=== PATIENT | female | born 1955 | race Caucasian/White ===

== ENCOUNTER → 2017-07-20 | Outpatient (CLI) | payer OTHER ==
[2017-07-20 15:46] LABS: Bilirubin, Urine Neg (Neg); Blood, Urine 1+ (Neg); Glucose Qualitative, Urine Neg (Neg); Ketones, Urine Neg (Neg); Leukocyte Esterase, Urine 2+ (Neg); Nitrite, Urine Neg (Neg); Protein, Urine 1+ (Neg); Urobilinogen, Urine 3+ (Normal); pH, Urine 6.5 (5.0-8.0)
[2017-07-20 16:00] LABS: Appearance, Urine Clear (Clear); Color, Urine Yellow (P-Yellow)
[2017-07-20 16:01] LABS: Bacteria Mod /hpf; Mucus Light (0-Heavy); Red Blood Cells, Urine 0-2 /hpf (0-2); Squamous Epithelial Cells Mod /hpf (Few)
== END | disposition home or self-care (01) ==
LOC: LAB SHORT 15:32
PROVIDERS: Nurse Practitioner Family
DX: R35.0 Frequency of micturition (principal); R31.9 Hematuria, unspecified; L98.8 Other specified disorders of the skin and subcutaneous tissue
CPT/HCPCS: 81001; 87086

== ENCOUNTER → 2018-09-30 | Outpatient (CLI) | payer OTHER | END | disposition home or self-care (01) | LOC: LAB SHORT 07:12 → PLD 07:12 | DX: L30.8 Other specified dermatitis (principal); L90.5 Scar conditions and fibrosis of skin; L92.9 Granulomatous disorder of the skin and subcutaneous tissue, unspecified | CPT/HCPCS: 88305 ==

== ENCOUNTER → 2018-10-09 | Outpatient (CLI) | payer OTHER | END | disposition home or self-care (01) | LOC: LAB 19:02 → LAB SHORT 19:02 | DX: L02.93 Carbuncle, unspecified (principal) | CPT/HCPCS: 87070; 87077; 87147; 87186; 87205 ==

== ENCOUNTER 2018-10-31 08:49 | Day surgery (SDC) | payer OTHER ==
[~2018-10-31] VITALS: Ht 167.6 cm; Wt 75.5 kg
[~2018-10-31 08:49] MED LIST: NADO20 PO; PANT20 PO; Prinivil10 MG PO; Woman's Laxative5 MG PO
[2018-10-31] MEDS ORDERED: Milk Thistle175 M1 PO (09:31)
[2018-10-31] MEDS ORDERED: CYAN500 (09:31)
[2018-10-31] MEDS ORDERED: Zantac150 MG (09:31)
--- NOTE | 2018-10-31 09:42 | NUR ---
10/31/18 0942 Omer Holley 1ST AND 2ND IV ATTEMPTS IN [facility] UNSUCCESSFUL, ORSC.LAURA 3RD IV ATTEMPT IN [facility] UNSUCCESSFUL, ORSC.AXE
--- NOTE | 2018-10-31 11:33 | NUR ---
10/31/18 1133 Trudi Monet PROCEDURE ABORTED DUE TO INABILITY TO ADVANCE PAST THE SIGMOID.
== END 2018-10-31 12:07 | disposition home or self-care (01) ==
LOC: ORSCSDS 08:49
PROVIDERS: Student in an Organized Health Care Education/Training Program
PROC: 06L38CZ Occlusion of Esophageal Vein with Extraluminal Device, Via Natural or Artificial Opening Endoscopic (ICD-10-PCS; principal; 2018-10-31 10:15)
PROC: 0DJD8ZZ Inspection of Lower Intestinal Tract, Via Natural or Artificial Opening Endoscopic (ICD-10-PCS; principal; 2018-10-31 10:15)
DX: K74.60 Unspecified cirrhosis of liver (principal); I85.00 Esophageal varices without bleeding; K76.6 Portal hypertension; K21.9 Gastro-esophageal reflux disease without esophagitis; K31.89 Other diseases of stomach and duodenum; Z12.11 Encounter for screening for malignant neoplasm of colon; Z13.810 Encounter for screening for upper gastrointestinal disorder; K57.30 Diverticulosis of large intestine without perforation or abscess without bleeding; K66.0 Peritoneal adhesions (postprocedural) (postinfection); F17.210 Nicotine dependence, cigarettes, uncomplicated; Z79.899 Other long term (current) drug therapy
CPT/HCPCS: J2250; J2405; J2704; J7120

== ENCOUNTER 2019-01-23 10:26 | Day surgery (SDC) | payer OTHER ==
[~2019-01-23] VITALS: Ht 165.1 cm; Wt 79.5 kg
[~2019-01-23 10:26] MED LIST changes: +CYAN500; +Milk Thistle175 M1 PO; +Zantac150 MG
--- NOTE | 2019-01-23 11:13 | NUR ---
01/23/19 [address] JOE AND DR. TIM GILLIS TO PROCEDURE WITH NURSE SEDATION.
== END 2019-01-23 12:00 | disposition home or self-care (01) ==
LOC: ORSCSDS 10:26
PROVIDERS: Student in an Organized Health Care Education/Training Program
PROC: 0DJ08ZZ Inspection of Upper Intestinal Tract, Via Natural or Artificial Opening Endoscopic (ICD-10-PCS; principal; 2019-01-23 12:00)
DX: K74.60 Unspecified cirrhosis of liver (principal); I85.00 Esophageal varices without bleeding; K76.6 Portal hypertension; K31.89 Other diseases of stomach and duodenum; I10 Essential (primary) hypertension; F32.9 Major depressive disorder, single episode, unspecified; E55.9 Vitamin D deficiency, unspecified; B19.20 Unspecified viral hepatitis C without hepatic coma; Z87.891 Personal history of nicotine dependence; Z79.899 Other long term (current) drug therapy
CPT/HCPCS: J2704; J7120

== ENCOUNTER 2019-02-14 17:48 | Emergency (ER) | payer OTHER ==
[~2019-02-14] VITALS: Ht 165.1 cm; Wt 78.9 kg
[2019-02-14 18:28] LABS: Source, Urine Clean Catch
[2019-02-14 18:30] LABS: Bilirubin, Urine Neg (Neg); Blood, Urine 2+ (Neg); Glucose Qualitative, Urine Neg (Neg); Ketones, Urine Neg (Neg); Leukocyte Esterase, Urine 3+ (Neg); Nitrite, Urine Neg (Neg); Protein, Urine Neg (Neg); Urobilinogen, Urine 1+ (Normal); pH, Urine 6.5 (5.0-8.0)
[2019-02-14] MEDS ORDERED: Sudogest60 MG PO (18:40)
[2019-02-14] MEDS ORDERED: Keflex500 MG PO (18:40)
[2019-02-14 18:46] LABS: Appearance, Urine Hazy (Clear); Color, Urine Yellow (P-Yellow)
[2019-02-14 18:47] LABS: White Blood Cells, Urine TNTC /hpf (0-5)
[2019-02-14 18:55] LABS: Bacteria Few /hpf; Squamous Epithelial Cells Few /hpf (Few)
== END 2019-02-14 18:54 | disposition home or self-care (01) ==
LOC: ER 17:48
PROVIDERS: Physician Assistant
DX: N39.0 Urinary tract infection, site not specified (principal); R09.81 Nasal congestion; K21.9 Gastro-esophageal reflux disease without esophagitis; I10 Essential (primary) hypertension; F17.200 Nicotine dependence, unspecified, uncomplicated; Z79.899 Other long term (current) drug therapy
CPT/HCPCS: 81001; 87077; 87086; 87186; 99283

== ENCOUNTER 2019-12-05 00:17 | Day surgery (SDC) | payer OTHER ==
[~2019-12-05 00:17] MED LIST changes: +Keflex500 MG PO; +Sudogest60 MG PO
== END 2019-12-05 10:46 | disposition home or self-care (01) ==
LOC: ATC 00:17
DX: C22.0 Liver cell carcinoma (principal); F17.210 Nicotine dependence, cigarettes, uncomplicated; I10 Essential (primary) hypertension; Z79.899 Other long term (current) drug therapy
CPT/HCPCS: 99211

== ENCOUNTER → 2019-12-15 | Outpatient (CLI) | payer OTHER ==
[2019-12-15 10:48] LABS: BASOPHILS ABSOLUTE AUTO 0.07 K/mm3 (0.00-0.23); BASOPHILS PERCENT AUTO 2 % (0-2); EOSINOPHILS ABSOLUTE AUTO 0.25 K/mm3 (0.00-0.68); EOSINOPHILS PERCENT AUTO 6 % (0-6); Hematocrit 33.4 % (33.0-51.0); IMMATURE GRAN ABSOLUTE AUTO 0.01 K/mm3 (0.00-0.10); IMMATURE GRAN PERCENT AUTO 0 % (0-1); LYMPHOCYTES ABSOLUTE AUTO 0.78 K/mm3 (0.84-5.20); LYMPHOCYTES PERCENT AUTO 20 % (21-46); MONOCYTES ABSOLUTE AUTO 0.85 K/mm3 (0.16-1.47); MONOCYTES PERCENT AUTO 21 % (4-13); Mean Corpuscular HGB 32.4 pg (26.0-34.0); Mean Corpuscular HGB Conc 32.9 g/dL (31.5-36.5); Mean Corpuscular Volume 98 fL (80-100); Mean Platelet Volume 10.7 fL (9.1-12.4); NEUTROPHILS ABSOLUTE AUTO 2.04 K/mm3 (1.96-9.15); NEUTROPHILS PERCENT AUTO 51 % (41-73); Platelet Count 202 K/mm3 (150-400); RDW Coefficient Variation 13.7 % (11.7-14.2); RDW Standard Deviation 48.3 fL (35.1-46.3)
== END | disposition home or self-care (01) ==
LOC: LAB SHORT 09:30 → LAB 09:30
PROVIDERS: Internal Medicine Hematology & Oncology
DX: C22.0 Liver cell carcinoma (principal)
CPT/HCPCS: 82105; 85025

== ENCOUNTER 2020-01-02 00:16 | Day surgery (SDC) | payer OTHER | END 2020-01-02 09:50 | disposition home or self-care (01) | LOC: ATC 00:16 | DX: C22.0 Liver cell carcinoma (principal); E78.5 Hyperlipidemia, unspecified; I10 Essential (primary) hypertension; Z79.899 Other long term (current) drug therapy | CPT/HCPCS: 99211 ==

== ENCOUNTER → 2020-01-19 | Outpatient (CLI) | payer OTHER ==
[2020-01-19 20:18] LABS: Alanine Aminotransfer (ALT/SGP 96 U/L (12-78); Albumin, Blood 2.9 g/dL (3.4-5.0); Albumin/Globulin Ratio 0.7 (0.8-1.8); Alk Phos 129 U/L (50-136); Anion Gap 4 mmol/L (6-16); Aspartate Aminotrans (AST/SGOT 75 U/L (12-37); Bilirubin, Total 0.4 mg/dL (0.1-1.0); Blood Urea Nitrogen 14 mg/dL (8-24); Bun/Creatinine Ratio 24.7 (12.0-20.0); CO2, Blood 29 mmol/L (21-32); Calcium, Blood 8.6 mg/dL (8.5-10.1); Chloride, Blood 106 mmol/L (98-108); Creatinine, Blood 0.57 mg/dL (0.40-1.00); Globulin, Blood 4.3 g/dL (2.2-4.0); Glomerular Filtration Rate >60 (60-); Glucose, Blood 113 mg/dL (70-99); Potassium, Blood 4.2 mmol/L (3.5-5.5); Sodium, Blood 139 mmol/L (136-145); Total Protein, Blood 7.2 g/dL (6.4-8.2)
== END | disposition home or self-care (01) ==
LOC: LAB 17:54 → LAB SHORT 17:54
PROVIDERS: Nurse Practitioner Family
DX: C22.0 Liver cell carcinoma (principal)
CPT/HCPCS: 80053

== ENCOUNTER 2020-01-26 00:14 | Day surgery (SDC) | payer OTHER | END 2020-01-26 11:14 | disposition home or self-care (01) | LOC: ATC 00:14 | DX: C22.0 Liver cell carcinoma (principal); F17.210 Nicotine dependence, cigarettes, uncomplicated; I10 Essential (primary) hypertension; E78.5 Hyperlipidemia, unspecified; Z79.899 Other long term (current) drug therapy; B19.20 Unspecified viral hepatitis C without hepatic coma; K74.60 Unspecified cirrhosis of liver; Z90.49 Acquired absence of other specified parts of digestive tract | CPT/HCPCS: 99211 ==

== ENCOUNTER 2020-02-02 10:47 | Day surgery (SDC) | payer OTHER | END 2020-02-02 11:11 | disposition home or self-care (01) | LOC: ATC 10:47 | DX: C22.0 Liver cell carcinoma (principal); F17.210 Nicotine dependence, cigarettes, uncomplicated; E78.5 Hyperlipidemia, unspecified; I10 Essential (primary) hypertension; B19.20 Unspecified viral hepatitis C without hepatic coma; K74.60 Unspecified cirrhosis of liver; K52.1 Toxic gastroenteritis and colitis; T45.1X5A Adverse effect of antineoplastic and immunosuppressive drugs, initial encounter; Z79.899 Other long term (current) drug therapy; Z90.49 Acquired absence of other specified parts of digestive tract | CPT/HCPCS: 99211 ==

== ENCOUNTER 2020-02-09 16:22 | Emergency (ER) | payer OTHER ==
[~2020-02-09] VITALS: Ht 165.1 cm; Wt 72.6 kg
[2020-02-09 16:45] LABS: BASOPHILS ABSOLUTE AUTO 0.05 K/mm3 (0.00-0.23); BASOPHILS PERCENT AUTO 1 % (0-2); EOSINOPHILS ABSOLUTE AUTO 0.19 K/mm3 (0.00-0.68); EOSINOPHILS PERCENT AUTO 3 % (0-6); Hematocrit 33.8 % (33.0-51.0); Hemoglobin 10.8 g/dL (11.5-16.0); IMMATURE GRAN ABSOLUTE AUTO 0.02 K/mm3 (0.00-0.10); IMMATURE GRAN PERCENT AUTO 0 % (0-1); LYMPHOCYTES ABSOLUTE AUTO 1.09 K/mm3 (0.84-5.20); LYMPHOCYTES PERCENT AUTO 19 % (21-46); MONOCYTES ABSOLUTE AUTO 1.06 K/mm3 (0.16-1.47); MONOCYTES PERCENT AUTO 18 % (4-13); Mean Corpuscular HGB 31.2 pg (26.0-34.0); Mean Corpuscular Volume 98 fL (80-100); Mean Platelet Volume 10.4 fL (9.1-12.4); NEUTROPHILS ABSOLUTE AUTO 3.35 K/mm3 (1.96-9.15); NEUTROPHILS PERCENT AUTO 58 % (41-73); Platelet Count 85 K/mm3 (150-400); RDW Coefficient Variation 15.6 % (11.7-14.2); RDW Standard Deviation 54.3 fL (35.1-46.3); Red Blood Cell Count 3.46 M/mm3 (3.80-5.20); White Blood Cell Count 5.76 K/mm3 (4.00-11.30)
[2020-02-09 16:58] LABS: International Normalized Ratio 1.18; Prothrombin Time Results 12.5 Sec (9.7-11.5)
[2020-02-09 17:01] LABS: Alanine Aminotransfer (ALT/SGP 94 U/L (12-78); Albumin, Blood 2.6 g/dL (3.4-5.0); Albumin/Globulin Ratio 0.6 (0.8-1.8); Alk Phos 128 U/L (50-136); Anion Gap 4 mmol/L (6-16); Aspartate Aminotrans (AST/SGOT 95 U/L (12-37); Bilirubin, Total 0.5 mg/dL (0.1-1.0); Blood Urea Nitrogen 15 mg/dL (8-24); Bun/Creatinine Ratio 28.4 (12.0-20.0); CO2, Blood 29 mmol/L (21-32); Calcium, Blood 8.6 mg/dL (8.5-10.1); Chloride, Blood 108 mmol/L (98-108); Creatinine, Blood 0.53 mg/dL (0.40-1.00); Globulin, Blood 4.4 g/dL (2.2-4.0); Glomerular Filtration Rate >60 (60-); Glucose, Blood 99 mg/dL (70-99); Potassium, Blood 3.5 mmol/L (3.5-5.5); Sodium, Blood 141 mmol/L (136-145)
[2020-02-09 18:48] LABS: Source, Urine Catheter
[2020-02-09 19:04] LABS: Appearance, Urine Clear (Clear); Bilirubin, Urine Neg (Neg); Blood, Urine 1+ (Neg); Color, Urine Yellow (P-Yellow); Glucose Qualitative, Urine Neg (Neg); Ketones, Urine Neg (Neg); Leukocyte Esterase, Urine 2+ (Neg); Nitrite, Urine Neg (Neg); Protein, Urine Neg (Neg); Urobilinogen, Urine 1+ (Normal)
[2020-02-09 19:29] LABS: Bacteria Mod /hpf; Red Blood Cells, Urine 0-2 /hpf (0-2); Squamous Epithelial Cells Few /hpf (Few)
[2020-02-09] MEDS ORDERED: CEPH500 PO (19:36)
== END 2020-02-09 19:48 | disposition home or self-care (01) ==
LOC: ER 16:22
PROVIDERS: Emergency Medicine; Physician Assistant
DX: N39.0 Urinary tract infection, site not specified (principal); C22.8 Malignant neoplasm of liver, primary, unspecified as to type; B19.20 Unspecified viral hepatitis C without hepatic coma; K21.9 Gastro-esophageal reflux disease without esophagitis; I10 Essential (primary) hypertension; F17.200 Nicotine dependence, unspecified, uncomplicated; Z92.21 Personal history of antineoplastic chemotherapy; Z79.899 Other long term (current) drug therapy
CPT/HCPCS: 76705; 80053; 81001; 85025; 85610; 87086; 99284-25; A9270-GY

== ENCOUNTER → 2020-02-16 | Outpatient (CLI) | payer OTHER ==
[~2020-02-16] MED LIST changes: +CEPH500 PO
[2020-02-16 20:06] LABS: Albumin, Blood 2.7 g/dL (3.4-5.0); Albumin/Globulin Ratio 0.6 (0.8-1.8); Alk Phos 137 U/L (50-136); Anion Gap 7 mmol/L (6-16); Aspartate Aminotrans (AST/SGOT 138 U/L (12-37); Bilirubin, Total 0.7 mg/dL (0.1-1.0); Blood Urea Nitrogen 12 mg/dL (8-24); Bun/Creatinine Ratio 21.1 (12.0-20.0); CO2, Blood 27 mmol/L (21-32); Chloride, Blood 105 mmol/L (98-108); Creatinine, Blood 0.57 mg/dL (0.40-1.00); Globulin, Blood 4.5 g/dL (2.2-4.0); Glomerular Filtration Rate >60 (60-); Glucose, Blood 136 mg/dL (70-99); Potassium, Blood 4.2 mmol/L (3.5-5.5); Sodium, Blood 139 mmol/L (136-145); Total Protein, Blood 7.2 g/dL (6.4-8.2)
[2020-02-16 20:16] LABS: Alanine Aminotransfer (ALT/SGP 101 U/L (12-78)
== END | disposition home or self-care (01) ==
LOC: LAB 17:36 → LAB SHORT 17:36
PROVIDERS: Internal Medicine Hematology & Oncology
DX: C22.0 Liver cell carcinoma (principal)
CPT/HCPCS: 80053; 84100

== ENCOUNTER 2020-02-25 00:12 | Day surgery (SDC) | payer OTHER ==
[2020-02-25 09:26] LABS: BASOPHILS ABSOLUTE AUTO 0.04 K/mm3 (0.00-0.23); BASOPHILS PERCENT AUTO 1 % (0-2); EOSINOPHILS ABSOLUTE AUTO 0.08 K/mm3 (0.00-0.68); EOSINOPHILS PERCENT AUTO 3 % (0-6); Hematocrit 33.5 % (33.0-51.0); IMMATURE GRAN ABSOLUTE AUTO 0.05 K/mm3 (0.00-0.10); IMMATURE GRAN PERCENT AUTO 2 % (0-1); LYMPHOCYTES ABSOLUTE AUTO 0.91 K/mm3 (0.84-5.20); LYMPHOCYTES PERCENT AUTO 33 % (21-46); MONOCYTES ABSOLUTE AUTO 1.16 K/mm3 (0.16-1.47); MONOCYTES PERCENT AUTO 41 % (4-13); Mean Corpuscular HGB 31.9 pg (26.0-34.0); Mean Corpuscular HGB Conc 32.8 g/dL (31.5-36.5); Mean Corpuscular Volume 97 fL (80-100); Mean Platelet Volume 10.1 fL (9.1-12.4); NEUTROPHILS ABSOLUTE AUTO 0.56 K/mm3 (1.96-9.15); NEUTROPHILS PERCENT AUTO 20 % (41-73); Platelet Count 125 K/mm3 (150-400); RDW Coefficient Variation 15.5 % (11.7-14.2); RDW Standard Deviation 54.2 fL (35.1-46.3); Red Blood Cell Count 3.45 M/mm3 (3.80-5.20)
[2020-02-25 09:44] LABS: Alanine Aminotransfer (ALT/SGP 118 U/L (12-78); Albumin, Blood 2.9 g/dL (3.4-5.0); Albumin/Globulin Ratio 0.6 (0.8-1.8); Alk Phos 130 U/L (50-136); Anion Gap 5 mmol/L (6-16); Aspartate Aminotrans (AST/SGOT 165 U/L (12-37); Bilirubin, Total 0.7 mg/dL (0.1-1.0); Blood Urea Nitrogen 15 mg/dL (8-24); Bun/Creatinine Ratio 26.8 (12.0-20.0); CO2, Blood 29 mmol/L (21-32); Calcium, Blood 8.6 mg/dL (8.5-10.1); Chloride, Blood 103 mmol/L (98-108); Creatinine, Blood 0.56 mg/dL (0.40-1.00); Glomerular Filtration Rate >60 (60-); Glucose, Blood 91 mg/dL (70-99); Potassium, Blood 4.4 mmol/L (3.5-5.5); Sodium, Blood 137 mmol/L (136-145); Total Protein, Blood 7.9 g/dL (6.4-8.2)
== END 2020-02-25 09:50 | disposition home or self-care (01) ==
LOC: ATC 00:12
PROVIDERS: Internal Medicine Hematology & Oncology
DX: C22.0 Liver cell carcinoma (principal); F17.210 Nicotine dependence, cigarettes, uncomplicated; E78.5 Hyperlipidemia, unspecified; I10 Essential (primary) hypertension; Z79.899 Other long term (current) drug therapy; Z98.890 Other specified postprocedural states; K52.1 Toxic gastroenteritis and colitis; T45.1X5A Adverse effect of antineoplastic and immunosuppressive drugs, initial encounter; B19.20 Unspecified viral hepatitis C without hepatic coma
CPT/HCPCS: 36592; 80053; 85025

== ENCOUNTER → 2020-03-09 | Outpatient (CLI) | payer OTHER ==
[~2020-03-09] MED LIST changes: +AMLO10 PO; +FAMO40 PO; +FURO40 PO; +POTCHL20ER PO
[2020-03-09 10:24] LABS: Alanine Aminotransfer (ALT/SGP 89 U/L (12-78); Albumin, Blood 2.5 g/dL (3.4-5.0); Albumin/Globulin Ratio 0.5 (0.8-1.8); Alk Phos 120 U/L (50-136); Anion Gap 4 mmol/L (6-16); Aspartate Aminotrans (AST/SGOT 136 U/L (12-37); Bilirubin, Total 0.6 mg/dL (0.1-1.0); Blood Urea Nitrogen 14 mg/dL (8-24); Bun/Creatinine Ratio 25.1 (12.0-20.0); CO2, Blood 28 mmol/L (21-32); Calcium, Blood 7.9 mg/dL (8.5-10.1); Chloride, Blood 105 mmol/L (98-108); Creatinine, Blood 0.56 mg/dL (0.40-1.00); Globulin, Blood 4.6 g/dL (2.2-4.0); Glomerular Filtration Rate >60 (60-); Glucose, Blood 105 mg/dL (70-99); Magnesium, Blood 1.8 mg/dL (1.6-2.4); Phosphorus, Blood 3.3 mg/dL (2.5-4.9); Potassium, Blood 5.7 mmol/L (3.5-5.5); Sodium, Blood 137 mmol/L (136-145); Total Protein, Blood 7.1 g/dL (6.4-8.2)
== END | disposition home or self-care (01) ==
LOC: LAB 09:55 → LAB SHORT 09:55
PROVIDERS: Internal Medicine Hematology & Oncology
DX: C22.0 Liver cell carcinoma (principal)
CPT/HCPCS: 80053; 83735; 84100

== ENCOUNTER 2020-03-11 14:11 | Day surgery (SDC) | payer OTHER ==
[~2020-03-11 14:11] MED LIST changes: -AMLO10 PO; -FAMO40 PO; -FURO40 PO; -POTCHL20ER PO
--- NOTE | 2020-03-12 10:55 | NUR ---
PICC LINE: NOTIFIED PARAG REBOLLAR AT DR NELSON'S OFFICE THAT PICC WAS NOW OUT 11 CM. PICC IS PATENT AND DRAWS BACK BLOOD. SHE WILL LET RUSSELL KNOW IF PICC NEEDS TO BE REPLACED OR REMOVED.
== END 2020-03-11 14:40 | disposition home or self-care (01) ==
LOC: ATC 14:11
DX: C22.0 Liver cell carcinoma (principal); F17.210 Nicotine dependence, cigarettes, uncomplicated; I10 Essential (primary) hypertension; E78.5 Hyperlipidemia, unspecified; B19.20 Unspecified viral hepatitis C without hepatic coma; Z90.49 Acquired absence of other specified parts of digestive tract; Z79.899 Other long term (current) drug therapy
CPT/HCPCS: 99211

== ENCOUNTER 2020-03-16 09:21 | Day surgery (SDC) | payer OTHER ==
[2020-03-16] MEDS ORDERED: FAMO40 PO (19:46)
[2020-03-16] MEDS ORDERED: FURO40 PO (19:46)
[2020-03-16] MEDS ORDERED: POTCHL20ER PO (19:46)
[2020-03-16] MEDS ORDERED: AMLO10 PO (19:47)
== END 2020-03-16 09:50 | disposition home or self-care (01) ==
LOC: ATC 09:21
DX: Z45.2 Encounter for adjustment and management of vascular access device (principal); C22.0 Liver cell carcinoma; I10 Essential (primary) hypertension; K74.69 Other cirrhosis of liver; B19.20 Unspecified viral hepatitis C without hepatic coma; F17.210 Nicotine dependence, cigarettes, uncomplicated; E55.9 Vitamin D deficiency, unspecified; E78.5 Hyperlipidemia, unspecified; Z79.899 Other long term (current) drug therapy
CPT/HCPCS: 99212

== ENCOUNTER 2020-03-16 17:03 | Emergency (ER) | payer OTHER ==
[~2020-03-16] VITALS: Ht 165.1 cm; Wt 78.0 kg
[2020-03-16 18:08] LABS: BASOPHILS ABSOLUTE AUTO 0.04 K/mm3 (0.00-0.23); BASOPHILS PERCENT AUTO 1 % (0-2); EOSINOPHILS ABSOLUTE AUTO 0.11 K/mm3 (0.00-0.68); EOSINOPHILS PERCENT AUTO 2 % (0-6); Hematocrit 33.4 % (33.0-51.0); IMMATURE GRAN ABSOLUTE AUTO 0.04 K/mm3 (0.00-0.10); IMMATURE GRAN PERCENT AUTO 1 % (0-1); LYMPHOCYTES ABSOLUTE AUTO 0.84 K/mm3 (0.84-5.20); LYMPHOCYTES PERCENT AUTO 18 % (21-46); MONOCYTES PERCENT AUTO 26 % (4-13); Mean Corpuscular HGB 31.7 pg (26.0-34.0); Mean Corpuscular HGB Conc 32.9 g/dL (31.5-36.5); Mean Corpuscular Volume 96 fL (80-100); Mean Platelet Volume 9.7 fL (9.1-12.4); NEUTROPHILS ABSOLUTE AUTO 2.36 K/mm3 (1.96-9.15); NEUTROPHILS PERCENT AUTO 51 % (41-73); Platelet Count 103 K/mm3 (150-400); RDW Coefficient Variation 15.2 % (11.7-14.2); RDW Standard Deviation 54.4 fL (35.1-46.3); Red Blood Cell Count 3.47 M/mm3 (3.80-5.20); White Blood Cell Count 4.59 K/mm3 (4.00-11.30)
[2020-03-16 18:22] LABS: International Normalized Ratio 1.16; Prothrombin Time Results 12.3 Sec (9.7-11.5)
[2020-03-16 18:33] LABS: Alanine Aminotransfer (ALT/SGP 112 U/L (12-78); Albumin, Blood 2.6 g/dL (3.4-5.0); Albumin/Globulin Ratio 0.5 (0.8-1.8); Alk Phos 139 U/L (50-136); Anion Gap 4 mmol/L (6-16); Aspartate Aminotrans (AST/SGOT 124 U/L (12-37); Bilirubin, Total 0.5 mg/dL (0.1-1.0); Blood Urea Nitrogen 11 mg/dL (8-24); Bun/Creatinine Ratio 17.3 (12.0-20.0); CO2, Blood 32 mmol/L (21-32); Calcium, Blood 8.8 mg/dL (8.5-10.1); Chloride, Blood 104 mmol/L (98-108); Creatinine, Blood 0.64 mg/dL (0.40-1.00); Glomerular Filtration Rate >60 (60-); Glucose, Blood 99 mg/dL (70-99); Sodium, Blood 140 mmol/L (136-145); Total Protein, Blood 7.6 g/dL (6.4-8.2)
[2020-03-16] MEDS ORDERED: FAMO40 PO (19:46)
[2020-03-16] MEDS ORDERED: FURO40 PO (19:46)
[2020-03-16] MEDS ORDERED: POTCHL20ER PO (19:46)
[2020-03-16] MEDS ORDERED: AMLO10 PO (19:47)
== END 2020-03-16 20:29 | disposition home or self-care (01) ==
LOC: ER 17:03
PROVIDERS: Emergency Medicine; Physician Assistant
DX: R18.8 Other ascites (principal); C22.0 Liver cell carcinoma; B19.20 Unspecified viral hepatitis C without hepatic coma; I10 Essential (primary) hypertension; K21.9 Gastro-esophageal reflux disease without esophagitis; F17.200 Nicotine dependence, unspecified, uncomplicated; Z20.828 Contact with and (suspected) exposure to other viral communicable diseases; Z79.899 Other long term (current) drug therapy
CPT/HCPCS: 71045; 80053; 82140; 83690; 85025; 85610; 85730; 99284-25; U0003

== ENCOUNTER 2020-03-17 11:20 | Emergency (ER) | payer OTHER ==
[~2020-03-17] VITALS: Ht 165.1 cm; Wt 78.0 kg
[~2020-03-17 11:20] MED LIST changes: +AMLO10 PO; +FAMO40 PO; +FURO40 PO; +POTCHL20ER PO
[2020-03-17 12:17] LABS: BASOPHILS ABSOLUTE AUTO 0.03 K/mm3 (0.00-0.23); BASOPHILS PERCENT AUTO 1 % (0-2); EOSINOPHILS ABSOLUTE AUTO 0.08 K/mm3 (0.00-0.68); EOSINOPHILS PERCENT AUTO 2 % (0-6); Hematocrit 32.5 % (33.0-51.0); Hemoglobin 10.7 g/dL (11.5-16.0); IMMATURE GRAN ABSOLUTE AUTO 0.03 K/mm3 (0.00-0.10); IMMATURE GRAN PERCENT AUTO 1 % (0-1); LYMPHOCYTES ABSOLUTE AUTO 0.46 K/mm3 (0.84-5.20); LYMPHOCYTES PERCENT AUTO 10 % (21-46); MONOCYTES ABSOLUTE AUTO 0.75 K/mm3 (0.16-1.47); MONOCYTES PERCENT AUTO 16 % (4-13); Mean Corpuscular HGB 31.8 pg (26.0-34.0); Mean Corpuscular HGB Conc 32.9 g/dL (31.5-36.5); Mean Corpuscular Volume 96 fL (80-100); Mean Platelet Volume 10.1 fL (9.1-12.4); NEUTROPHILS ABSOLUTE AUTO 3.26 K/mm3 (1.96-9.15); NEUTROPHILS PERCENT AUTO 71 % (41-73); Platelet Count 80 K/mm3 (150-400); RDW Coefficient Variation 15.4 % (11.7-14.2); RDW Standard Deviation 54.4 fL (35.1-46.3); Red Blood Cell Count 3.37 M/mm3 (3.80-5.20); White Blood Cell Count 4.61 K/mm3 (4.00-11.30)
[2020-03-17 12:36] LABS: Alanine Aminotransfer (ALT/SGP 92 U/L (12-78); Albumin, Blood 2.5 g/dL (3.4-5.0); Albumin/Globulin Ratio 0.5 (0.8-1.8); Alk Phos 128 U/L (50-136); Anion Gap 4 mmol/L (6-16); Aspartate Aminotrans (AST/SGOT 104 U/L (12-37); Bilirubin, Total 0.7 mg/dL (0.1-1.0); Blood Urea Nitrogen 12 mg/dL (8-24); Bun/Creatinine Ratio 19.9 (12.0-20.0); CO2, Blood 31 mmol/L (21-32); Calcium, Blood 8.4 mg/dL (8.5-10.1); Chloride, Blood 99 mmol/L (98-108); Globulin, Blood 4.8 g/dL (2.2-4.0); Glomerular Filtration Rate >60 (60-); Glucose, Blood 152 mg/dL (70-99); Potassium, Blood 3.7 mmol/L (3.5-5.5); Sodium, Blood 134 mmol/L (136-145); Total Protein, Blood 7.3 g/dL (6.4-8.2)
== END 2020-03-17 16:43 | disposition home or self-care (01) ==
LOC: ER 11:20
PROVIDERS: Emergency Medicine
DX: R18.8 Other ascites (principal); K21.9 Gastro-esophageal reflux disease without esophagitis; I10 Essential (primary) hypertension; F17.200 Nicotine dependence, unspecified, uncomplicated; Z85.05 Personal history of malignant neoplasm of liver
CPT/HCPCS: 49083; 80053; 83690; 85025; 93005; 93010; 96365-59; 96366-59; 99285-25; P9046

== ENCOUNTER 2020-03-23 00:22 | Day surgery (SDC) | payer OTHER | END 2020-03-23 14:55 | disposition home or self-care (01) | LOC: ATC 00:22 | DX: Z48.01 Encounter for change or removal of surgical wound dressing (principal); C22.0 Liver cell carcinoma; F17.210 Nicotine dependence, cigarettes, uncomplicated; I10 Essential (primary) hypertension; K74.69 Other cirrhosis of liver; B19.20 Unspecified viral hepatitis C without hepatic coma; Z79.899 Other long term (current) drug therapy | CPT/HCPCS: 99211 ==

== ENCOUNTER 2020-03-26 13:39 | Emergency (ER) | payer OTHER ==
[~2020-03-26] VITALS: Ht 165.1 cm; Wt 77.1 kg
== END 2020-03-26 14:35 | disposition home or self-care (01) ==
LOC: ER 13:39
DX: C22.0 Liver cell carcinoma (principal); R18.0 Malignant ascites; F17.210 Nicotine dependence, cigarettes, uncomplicated; Z79.899 Other long term (current) drug therapy; Z92.21 Personal history of antineoplastic chemotherapy
CPT/HCPCS: 99283

== ENCOUNTER 2020-03-30 02:12 | Day surgery (SDC) | payer OTHER | END 2020-03-30 15:25 | disposition home or self-care (01) | LOC: ATC 02:12 | DX: Z48.01 Encounter for change or removal of surgical wound dressing (principal); C22.0 Liver cell carcinoma; K74.60 Unspecified cirrhosis of liver; B19.20 Unspecified viral hepatitis C without hepatic coma; F17.210 Nicotine dependence, cigarettes, uncomplicated; E55.9 Vitamin D deficiency, unspecified; E78.5 Hyperlipidemia, unspecified; I10 Essential (primary) hypertension; Z79.899 Other long term (current) drug therapy | CPT/HCPCS: 99211 ==

== ENCOUNTER 2020-04-06 00:23 | Day surgery (SDC) | payer OTHER | END 2020-04-06 11:35 | disposition home or self-care (01) | LOC: ATC 00:23 | DX: C22.0 Liver cell carcinoma (principal); F17.210 Nicotine dependence, cigarettes, uncomplicated; I10 Essential (primary) hypertension; E78.5 Hyperlipidemia, unspecified; K52.1 Toxic gastroenteritis and colitis; T45.1X5A Adverse effect of antineoplastic and immunosuppressive drugs, initial encounter; B19.20 Unspecified viral hepatitis C without hepatic coma; Z79.899 Other long term (current) drug therapy; Z90.49 Acquired absence of other specified parts of digestive tract | CPT/HCPCS: 99212 ==

== ENCOUNTER 2020-04-13 00:04 | Day surgery (SDC) | payer OTHER | END 2020-04-13 10:40 | disposition home or self-care (01) | LOC: ATC 00:04 | DX: Z48.01 Encounter for change or removal of surgical wound dressing (principal); C22.0 Liver cell carcinoma; E55.9 Vitamin D deficiency, unspecified; E78.5 Hyperlipidemia, unspecified; F15.10 Other stimulant abuse, uncomplicated; B19.20 Unspecified viral hepatitis C without hepatic coma; I10 Essential (primary) hypertension; F17.210 Nicotine dependence, cigarettes, uncomplicated; K74.60 Unspecified cirrhosis of liver; Z90.49 Acquired absence of other specified parts of digestive tract; Z79.899 Other long term (current) drug therapy | CPT/HCPCS: 36593; J2997 ==

== ENCOUNTER → 2020-04-13 | Outpatient (CLI) | payer OTHER ==
[2020-04-13 22:43] LABS: Stool Occult Blood Guaiac 1 Pos (Neg)
== END | disposition home or self-care (01) ==
LOC: LAB 08:15 → LAB SHORT 08:15 → LAB FUT 04-12 13:50
PROVIDERS: Internal Medicine Hematology & Oncology
DX: K92.1 Melena (principal)
CPT/HCPCS: 82270

== ENCOUNTER 2020-04-14 11:06 | Day surgery (SDC) | payer OTHER ==
[~2020-04-14] VITALS: Ht 165.1 cm; Wt 79.3 kg
--- NOTE | 2020-04-14 12:35 | NUR ---
04/14/20 1235 TAWNYA RUIZ PATIENT ARRIVED TO THE FACILITY WITH PICC LINE TO UPPER LRFT ARM, DR. RUBI GAVE VERBAL ORDER TO ACCESS PICC LINE, PICC LINE TO UPPER LEFT ARM WNL, DRESSING IN PLACE CDI, SITE FLUSHES WELL, PATIENT DENIES DISCOMFORT WITH FLUSHING, IV FLUIDS RUNNING PER ORDERS
== END 2020-04-14 15:21 | disposition home or self-care (01) ==
LOC: ORSCSDS 11:06
PROVIDERS: Surgery
PROC: 0B9N30Z Drainage of Right Pleura with Drainage Device, Percutaneous Approach (ICD-10-PCS; principal; 2020-04-14 13:00)
DX: C22.0 Liver cell carcinoma (principal); R18.8 Other ascites; K76.6 Portal hypertension; K31.89 Other diseases of stomach and duodenum; I85.10 Secondary esophageal varices without bleeding; I10 Essential (primary) hypertension; E78.5 Hyperlipidemia, unspecified; Z86.19 Personal history of other infectious and parasitic diseases; Z79.899 Other long term (current) drug therapy; F17.210 Nicotine dependence, cigarettes, uncomplicated
CPT/HCPCS: C1729; J0690; J2001; J2250; J2704; J3010; J7120

== ENCOUNTER 2020-04-18 11:15 | Emergency (ER) | payer OTHER ==
[~2020-04-18] VITALS: Ht 165.1 cm; Wt 77.1 kg
== END 2020-04-18 16:00 | disposition home or self-care (01) ==
LOC: ER 11:15
DX: C22.9 Malignant neoplasm of liver, not specified as primary or secondary (principal); R18.0 Malignant ascites; T85.628A Displacement of other specified internal prosthetic devices, implants and grafts, initial encounter
CPT/HCPCS: 99283-25

== ENCOUNTER 2020-05-04 10:17 | Day surgery (SDC) | payer OTHER ==
[2020-05-04 11:45] LABS: BASOPHILS ABSOLUTE AUTO 0.04 K/mm3 (0.00-0.23); BASOPHILS PERCENT AUTO 1 % (0-2); EOSINOPHILS ABSOLUTE AUTO 0.13 K/mm3 (0.00-0.68); EOSINOPHILS PERCENT AUTO 3 % (0-6); Hematocrit 32.2 % (33.0-51.0); Hemoglobin 10.5 g/dL (11.5-16.0); IMMATURE GRAN ABSOLUTE AUTO 0.03 K/mm3 (0.00-0.10); IMMATURE GRAN PERCENT AUTO 1 % (0-1); LYMPHOCYTES ABSOLUTE AUTO 0.73 K/mm3 (0.84-5.20); LYMPHOCYTES PERCENT AUTO 18 % (21-46); MONOCYTES ABSOLUTE AUTO 0.42 K/mm3 (0.16-1.47); MONOCYTES PERCENT AUTO 10 % (4-13); Mean Corpuscular HGB 31.6 pg (26.0-34.0); Mean Corpuscular HGB Conc 32.6 g/dL (31.5-36.5); Mean Corpuscular Volume 97 fL (80-100); NEUTROPHILS ABSOLUTE AUTO 2.75 K/mm3 (1.96-9.15); NEUTROPHILS PERCENT AUTO 67 % (41-73); RDW Coefficient Variation 15.5 % (11.7-14.2); RDW Standard Deviation 55.2 fL (35.1-46.3); Red Blood Cell Count 3.32 M/mm3 (3.80-5.20)
[2020-05-04 11:50] LABS: International Normalized Ratio 1.29; Prothrombin Time Results 13.6 Sec (9.7-11.5)
[2020-05-04 11:56] LABS: Alanine Aminotransfer (ALT/SGP 80 U/L (12-78); Albumin, Blood 1.9 g/dL (3.4-5.0); Albumin/Globulin Ratio 0.4 (0.8-1.8); Alk Phos 133 U/L (50-136); Anion Gap 3 mmol/L (6-16); Aspartate Aminotrans (AST/SGOT 193 U/L (12-37); Bilirubin, Total 0.7 mg/dL (0.1-1.0); Blood Urea Nitrogen 16 mg/dL (8-24); Bun/Creatinine Ratio 22.6 (12.0-20.0); CO2, Blood 28 mmol/L (21-32); Calcium, Blood 8.5 mg/dL (8.5-10.1); Chloride, Blood 104 mmol/L (98-108); Creatinine, Blood 0.71 mg/dL (0.40-1.00); Globulin, Blood 5.3 g/dL (2.2-4.0); Glomerular Filtration Rate >60 (60-); Glucose, Blood 108 mg/dL (70-99); Potassium, Blood 4.9 mmol/L (3.5-5.5); Sodium, Blood 135 mmol/L (136-145); Total Protein, Blood 7.2 g/dL (6.4-8.2)
== END 2020-05-04 11:00 | disposition home or self-care (01) ==
LOC: ATC 10:17
PROVIDERS: Internal Medicine Hematology & Oncology
DX: T82.898A Other specified complication of vascular prosthetic devices, implants and grafts, initial encounter (principal); C22.0 Liver cell carcinoma; B19.20 Unspecified viral hepatitis C without hepatic coma; K74.60 Unspecified cirrhosis of liver; F17.210 Nicotine dependence, cigarettes, uncomplicated; E55.9 Vitamin D deficiency, unspecified; E78.5 Hyperlipidemia, unspecified; I10 Essential (primary) hypertension; Z90.49 Acquired absence of other specified parts of digestive tract; Z79.899 Other long term (current) drug therapy; Y84.0 Cardiac catheterization as the cause of abnormal reaction of the patient, or of later complication, without mention of misadventure at the time of the procedure
CPT/HCPCS: 36593; 80053; 85025; 85610; 85730; J2997

== ENCOUNTER 2020-05-04 18:47 | Emergency (ER) | payer OTHER ==
[~2020-05-04] VITALS: Ht 165.1 cm; Wt 77.1 kg
[2020-05-04 22:26] LABS: Automated BF WBC Count 0.089 K/mm3 (0-999); Body Fluid WBC Count 89 /mm3 (0-999)
[2020-05-04 22:40] LABS: RBC Count, Body Fluid 115 /mm3 (0-0)
[2020-05-04 22:50] LABS: Appearance, Body Fluid Clear (Clear); Color, Body Fluid L Yellow (None-Yellow); Total Cell Count, Body Fluid 100
== END 2020-05-05 01:21 | disposition home or self-care (01) ==
LOC: ER 18:47
PROVIDERS: Emergency Medicine
DX: R18.8 Other ascites (principal); K21.9 Gastro-esophageal reflux disease without esophagitis; I10 Essential (primary) hypertension; F17.210 Nicotine dependence, cigarettes, uncomplicated; Z79.899 Other long term (current) drug therapy
CPT/HCPCS: 49082; 87070; 87205; 89051; 99284-25

== ENCOUNTER 2020-05-11 00:09 | Day surgery (SDC) | payer OTHER ==
--- NOTE | 2020-05-11 17:11 | NUR ---
CATHFLOW: PICC FLUSHES EASILY BUT DOES NOT DRAW BACK BLOOD, INSTILLED 2ML CATHFLOW AND WAITED 30 MINUTES BUT STILL NO BLOOD RETURN. PLACED TAPE OVER THE END CAP WITH WRITING STATING CATHFLO WITH DATE AND TIME. PT STS SHE IS GOING TO ER TO SEE IF SHE CAN HAVE PARACENTESIS DONE. PT VERBALIZED UNDERSTANDING THAT PICC SHOULD NOT BE USED FOR 24 HOURS. GAVE THE PATIENT THE CATHFLO BOX AND INFORMATION SHEET.
== END 2020-05-11 17:05 | disposition home or self-care (01) ==
LOC: ATC 00:09
DX: C22.0 Liver cell carcinoma (principal); F17.210 Nicotine dependence, cigarettes, uncomplicated; E78.5 Hyperlipidemia, unspecified; I10 Essential (primary) hypertension; Z79.899 Other long term (current) drug therapy; B19.20 Unspecified viral hepatitis C without hepatic coma; K52.1 Toxic gastroenteritis and colitis; T45.1X5A Adverse effect of antineoplastic and immunosuppressive drugs, initial encounter; Z90.49 Acquired absence of other specified parts of digestive tract
CPT/HCPCS: 36593; J2997

== ENCOUNTER 2020-05-13 15:32 | Emergency (ER) | payer OTHER ==
[~2020-05-13] VITALS: Ht 165.1 cm; Wt 77.1 kg
[2020-05-13 16:32] LABS: BASOPHILS ABSOLUTE AUTO 0.07 K/mm3 (0.00-0.23); BASOPHILS PERCENT AUTO 1 % (0-2); EOSINOPHILS ABSOLUTE AUTO 0.22 K/mm3 (0.00-0.68); EOSINOPHILS PERCENT AUTO 3 % (0-6); Hemoglobin 12.7 g/dL (11.5-16.0); IMMATURE GRAN ABSOLUTE AUTO 0.03 K/mm3 (0.00-0.10); IMMATURE GRAN PERCENT AUTO 0 % (0-1); LYMPHOCYTES ABSOLUTE AUTO 1.09 K/mm3 (0.84-5.20); LYMPHOCYTES PERCENT AUTO 16 % (21-46); MONOCYTES ABSOLUTE AUTO 0.97 K/mm3 (0.16-1.47); MONOCYTES PERCENT AUTO 14 % (4-13); Mean Corpuscular HGB 31.1 pg (26.0-34.0); Mean Corpuscular HGB Conc 32.6 g/dL (31.5-36.5); Mean Corpuscular Volume 96 fL (80-100); Mean Platelet Volume 9.7 fL (9.1-12.4); NEUTROPHILS ABSOLUTE AUTO 4.49 K/mm3 (1.96-9.15); NEUTROPHILS PERCENT AUTO 65 % (41-73); Platelet Count 226 K/mm3 (150-400); RDW Coefficient Variation 15.1 % (11.7-14.2); RDW Standard Deviation 53.9 fL (35.1-46.3); Red Blood Cell Count 4.08 M/mm3 (3.80-5.20); White Blood Cell Count 6.87 K/mm3 (4.00-11.30)
[2020-05-13 16:35] LABS: Alanine Aminotransfer (ALT/SGP 87 U/L (12-78); Albumin, Blood 2.1 g/dL (3.4-5.0); Albumin/Globulin Ratio 0.3 (0.8-1.8); Alk Phos 153 U/L (50-136); Anion Gap 8 mmol/L (6-16); Aspartate Aminotrans (AST/SGOT 160 U/L (12-37); Blood Urea Nitrogen 16 mg/dL (8-24); Bun/Creatinine Ratio 17.4 (12.0-20.0); CO2, Blood 19 mmol/L (21-32); Calcium, Blood 8.5 mg/dL (8.5-10.1); Chloride, Blood 105 mmol/L (98-108); Creatinine, Blood 0.92 mg/dL (0.40-1.00); Globulin, Blood 6.1 g/dL (2.2-4.0); Glomerular Filtration Rate >60 (60-); Glucose, Blood 112 mg/dL (70-99); Potassium, Blood 4.3 mmol/L (3.5-5.5); Sodium, Blood 132 mmol/L (136-145); Total Protein, Blood 8.2 g/dL (6.4-8.2)
[2020-05-13 16:48] LABS: International Normalized Ratio 1.27; Prothrombin Time Results 13.4 Sec (9.7-11.5)
== END 2020-05-13 17:45 | disposition home or self-care (01) ==
LOC: ER 15:32
PROVIDERS: Physician Assistant
DX: R18.8 Other ascites (principal); I10 Essential (primary) hypertension; K21.9 Gastro-esophageal reflux disease without esophagitis; F17.210 Nicotine dependence, cigarettes, uncomplicated; Z79.899 Other long term (current) drug therapy
CPT/HCPCS: 36415; 71046; 80053; 85025; 85610; 99284-25

== ENCOUNTER 2020-05-14 09:19 | Emergency (ER) | payer OTHER ==
[~2020-05-14] VITALS: Ht 167.6 cm; Wt 77.1 kg
== END 2020-05-14 12:54 | disposition home or self-care (01) ==
LOC: ER 09:19
DX: R18.8 Other ascites (principal); I10 Essential (primary) hypertension; K21.9 Gastro-esophageal reflux disease without esophagitis; K27.9 Peptic ulcer, site unspecified, unspecified as acute or chronic, without hemorrhage or perforation; F17.210 Nicotine dependence, cigarettes, uncomplicated; Z79.899 Other long term (current) drug therapy
CPT/HCPCS: 36415; 85730; 99284

== ENCOUNTER 2020-05-25 00:20 | Day surgery (SDC) | payer OTHER | END 2020-05-25 08:55 | disposition home or self-care (01) | LOC: ATC 00:20 | DX: Z48.00 Encounter for change or removal of nonsurgical wound dressing (principal); C22.0 Liver cell carcinoma; E55.9 Vitamin D deficiency, unspecified; E78.5 Hyperlipidemia, unspecified; I10 Essential (primary) hypertension; F17.210 Nicotine dependence, cigarettes, uncomplicated; Z79.899 Other long term (current) drug therapy; Z20.828 Contact with and (suspected) exposure to other viral communicable diseases | CPT/HCPCS: 99211 ==

== ENCOUNTER → 2020-06-08 | Outpatient (CLI) | payer OTHER ==
[~2020-06-08] MED LIST changes: +ALPR.5 PO; +CONSTULOSE10 GM/155 PO; +HYDHCL25 PO; +LACT10SY PO; +MUPIROCIN22 G2 TOP; +ONDA4 PO; +SPIR25 PO
[2020-06-08 19:54] LABS: Alanine Aminotransfer (ALT/SGP 65 U/L (12-78); Albumin, Blood 2.2 g/dL (3.4-5.0); Albumin/Globulin Ratio 0.5 (0.8-1.8); Alk Phos 122 U/L (50-136); Anion Gap 7 mmol/L (6-16); Aspartate Aminotrans (AST/SGOT 100 U/L (12-37); Bilirubin, Direct 0.4 mg/dL (0.0-0.3); Bilirubin, Indirect 0.3 mg/dL (0.1-0.7); Bilirubin, Total 0.7 mg/dL (0.1-1.0); Blood Urea Nitrogen 22 mg/dL (8-24); Bun/Creatinine Ratio 23.3 (12.0-20.0); CO2, Blood 24 mmol/L (21-32); Calcium, Blood 8.2 mg/dL (8.5-10.1); Chloride, Blood 104 mmol/L (98-108); Creatinine, Blood 0.95 mg/dL (0.40-1.00); Globulin, Blood 4.5 g/dL (2.2-4.0); Glomerular Filtration Rate >60 (60-); Glucose, Blood 93 mg/dL (70-99); Potassium, Blood 4.4 mmol/L (3.5-5.5); Sodium, Blood 135 mmol/L (136-145); Total Protein, Blood 6.7 g/dL (6.4-8.2)
== END | disposition home or self-care (01) ==
LOC: LAB 18:16 → LAB SHORT 18:16
PROVIDERS: Internal Medicine Hematology & Oncology
DX: C22.0 Liver cell carcinoma (principal)
CPT/HCPCS: 80053; 82105; 82248

== ENCOUNTER 2020-06-10 00:08 | Day surgery (SDC) | payer OTHER ==
[~2020-06-10 00:08] MED LIST changes: -ALPR.5 PO; -CONSTULOSE10 GM/155 PO; -HYDHCL25 PO; -LACT10SY PO; -MUPIROCIN22 G2 TOP; -ONDA4 PO; -SPIR25 PO
== END 2020-06-10 14:37 | disposition home or self-care (01) ==
LOC: ATC 00:08
DX: C22.0 Liver cell carcinoma (principal); F17.210 Nicotine dependence, cigarettes, uncomplicated; I10 Essential (primary) hypertension; B19.20 Unspecified viral hepatitis C without hepatic coma; Z90.49 Acquired absence of other specified parts of digestive tract
CPT/HCPCS: 49083; 99211

== ENCOUNTER 2020-06-10 14:47 | Day surgery (SDC) | payer OTHER | END 2020-06-10 23:59 | disposition home or self-care (01) | LOC: US 14:47 | DX: C22.0 Liver cell carcinoma (principal); R18.0 Malignant ascites; I10 Essential (primary) hypertension; F17.200 Nicotine dependence, unspecified, uncomplicated | CPT/HCPCS: 49083 ==

== ENCOUNTER 2020-06-17 01:27 | Day surgery (SDC) | payer OTHER | END 2020-06-17 14:45 | disposition home or self-care (01) | LOC: ATC 01:27 | DX: C22.0 Liver cell carcinoma (principal); F17.210 Nicotine dependence, cigarettes, uncomplicated; E78.5 Hyperlipidemia, unspecified | CPT/HCPCS: 99211 ==

== ENCOUNTER 2020-06-17 15:16 | Day surgery (SDC) | payer OTHER | END 2020-06-17 22:42 | disposition home or self-care (01) | LOC: US 15:16 | DX: C22.0 Liver cell carcinoma (principal); R18.0 Malignant ascites; I10 Essential (primary) hypertension | CPT/HCPCS: 49083 ==

== ENCOUNTER 2020-06-21 00:17 | Day surgery (SDC) | payer OTHER | END 2020-06-21 22:49 | disposition home or self-care (01) | LOC: ATC 00:17 | DX: Z45.2 Encounter for adjustment and management of vascular access device (principal); C22.0 Liver cell carcinoma; F17.210 Nicotine dependence, cigarettes, uncomplicated; I10 Essential (primary) hypertension; E78.5 Hyperlipidemia, unspecified; Z20.822 Contact with and (suspected) exposure to COVID-19 ==

== ENCOUNTER → 2020-06-22 | Outpatient (CLI) | payer OTHER ==
[~2020-06-22] MED LIST changes: +ALPR.5 PO; +CONSTULOSE10 GM/155 PO; +HYDHCL25 PO; +LACT10SY PO; +MUPIROCIN22 G2 TOP; +ONDA4 PO; +SPIR25 PO
[2020-06-22 13:24] LABS: Albumin, Blood 1.8 g/dL (3.4-5.0); Albumin/Globulin Ratio 0.4 (0.8-1.8); Bilirubin, Total 0.8 mg/dL (0.1-1.0); Bun/Creatinine Ratio 19.8 (12.0-20.0); Calcium, Blood 8.1 mg/dL (8.5-10.1); Creatinine, Blood 1.16 mg/dL (0.40-1.00); Globulin, Blood 4.9 g/dL (2.2-4.0); Phosphorus, Blood 3.5 mg/dL (2.5-4.9); Potassium, Blood 5.5 mmol/L (3.5-5.5); Total Protein, Blood 6.7 g/dL (6.4-8.2)
== END ==
LOC: LAB SHORT 12:46 → LAB 12:46
PROVIDERS: Internal Medicine Hematology & Oncology
DX: C22.0 Liver cell carcinoma (principal); K74.60 Unspecified cirrhosis of liver; I10 Essential (primary) hypertension
CPT/HCPCS: 80053; 84100

== ENCOUNTER 2020-06-24 14:09 | Day surgery (SDC) | payer OTHER ==
[~2020-06-24 14:09] MED LIST changes: -ALPR.5 PO; -CONSTULOSE10 GM/155 PO; -HYDHCL25 PO; -LACT10SY PO; -MUPIROCIN22 G2 TOP; -ONDA4 PO; -SPIR25 PO
== END 2020-06-24 14:22 | disposition home or self-care (01) ==
LOC: ATC 14:09
DX: Z45.2 Encounter for adjustment and management of vascular access device (principal); C22.0 Liver cell carcinoma; B19.20 Unspecified viral hepatitis C without hepatic coma; K71.7 Toxic liver disease with fibrosis and cirrhosis of liver; R18.0 Malignant ascites; T50.905S Adverse effect of unspecified drugs, medicaments and biological substances, sequela; I10 Essential (primary) hypertension; F17.210 Nicotine dependence, cigarettes, uncomplicated; Z92.21 Personal history of antineoplastic chemotherapy
CPT/HCPCS: 49083; 99211

== ENCOUNTER 2020-06-24 14:41 | Day surgery (SDC) | payer OTHER | END 2020-06-24 23:35 | disposition home or self-care (01) | LOC: US 14:41 | DX: C22.0 Liver cell carcinoma (principal); R18.0 Malignant ascites | CPT/HCPCS: 49083 ==

== ENCOUNTER 2020-07-01 00:10 | Day surgery (SDC) | payer OTHER ==
[2020-07-01 15:26] LABS: BASOPHILS ABSOLUTE AUTO 0.11 K/mm3 (0.00-0.23); BASOPHILS PERCENT AUTO 2 % (0-2); EOSINOPHILS ABSOLUTE AUTO 0.33 K/mm3 (0.00-0.68); EOSINOPHILS PERCENT AUTO 5 % (0-6); Hematocrit 38.2 % (33.0-51.0); Hemoglobin 12.2 g/dL (11.5-16.0); IMMATURE GRAN ABSOLUTE AUTO 0.02 K/mm3 (0.00-0.10); IMMATURE GRAN PERCENT AUTO 0 % (0-1); LYMPHOCYTES ABSOLUTE AUTO 1.01 K/mm3 (0.84-5.20); LYMPHOCYTES PERCENT AUTO 17 % (21-46); MONOCYTES ABSOLUTE AUTO 0.94 K/mm3 (0.16-1.47); MONOCYTES PERCENT AUTO 15 % (4-13); Mean Corpuscular HGB 30.9 pg (26.0-34.0); Mean Corpuscular HGB Conc 31.9 g/dL (31.5-36.5); Mean Corpuscular Volume 97 fL (80-100); NEUTROPHILS ABSOLUTE AUTO 3.69 K/mm3 (1.96-9.15); NEUTROPHILS PERCENT AUTO 61 % (41-73); Platelet Count 240 K/mm3 (150-400); RDW Coefficient Variation 15.1 % (11.7-14.2); RDW Standard Deviation 53.3 fL (35.1-46.3); Red Blood Cell Count 3.95 M/mm3 (3.80-5.20)
[2020-07-01 15:35] LABS: Alanine Aminotransfer (ALT/SGP 43 U/L (12-78); Albumin, Blood 1.8 g/dL (3.4-5.0); Albumin/Globulin Ratio 0.4 (0.8-1.8); Alk Phos 134 U/L (50-136); Anion Gap 5 mmol/L (6-16); Aspartate Aminotrans (AST/SGOT 75 U/L (12-37); Bilirubin, Total 0.7 mg/dL (0.1-1.0); Blood Urea Nitrogen 23 mg/dL (8-24); Bun/Creatinine Ratio 23.8 (12.0-20.0); CO2, Blood 26 mmol/L (21-32); Calcium, Blood 8.1 mg/dL (8.5-10.1); Chloride, Blood 105 mmol/L (98-108); Creatinine, Blood 0.97 mg/dL (0.40-1.00); Globulin, Blood 4.8 g/dL (2.2-4.0); Glomerular Filtration Rate >60 (60-); Glucose, Blood 136 mg/dL (70-99); Potassium, Blood 4.2 mmol/L (3.5-5.5); Sodium, Blood 136 mmol/L (136-145); Total Protein, Blood 6.6 g/dL (6.4-8.2)
== END 2020-07-01 15:15 | disposition home or self-care (01) ==
LOC: ATC 00:10
PROVIDERS: Internal Medicine Hematology & Oncology
DX: Z45.2 Encounter for adjustment and management of vascular access device (principal); C22.0 Liver cell carcinoma; I10 Essential (primary) hypertension; B19.20 Unspecified viral hepatitis C without hepatic coma; F17.210 Nicotine dependence, cigarettes, uncomplicated
CPT/HCPCS: 36592; 80053; 85025

== ENCOUNTER 2020-07-01 15:24 | Day surgery (SDC) | payer OTHER | END 2020-07-01 23:45 | disposition home or self-care (01) | LOC: US 15:24 | DX: C22.0 Liver cell carcinoma (principal); R18.0 Malignant ascites; I10 Essential (primary) hypertension | CPT/HCPCS: 49083 ==

== ENCOUNTER 2020-07-08 00:21 | Day surgery (SDC) | payer OTHER | END 2020-07-08 14:33 | disposition home or self-care (01) | LOC: ATC 00:21 | DX: Z45.2 Encounter for adjustment and management of vascular access device (principal); C22.0 Liver cell carcinoma; I10 Essential (primary) hypertension; F17.210 Nicotine dependence, cigarettes, uncomplicated; B19.20 Unspecified viral hepatitis C without hepatic coma | CPT/HCPCS: 99211 ==

== ENCOUNTER 2020-07-08 14:52 | Day surgery (SDC) | payer OTHER | END 2020-07-08 22:52 | disposition home or self-care (01) | LOC: US 14:52 | DX: C22.0 Liver cell carcinoma (principal); R18.0 Malignant ascites | CPT/HCPCS: 49083 ==

== ENCOUNTER 2020-07-15 00:13 | Day surgery (SDC) | payer OTHER | END 2020-07-15 14:20 | disposition home or self-care (01) | LOC: ATC 00:13 | DX: C22.0 Liver cell carcinoma (principal); I10 Essential (primary) hypertension; F17.210 Nicotine dependence, cigarettes, uncomplicated; B19.20 Unspecified viral hepatitis C without hepatic coma; K74.60 Unspecified cirrhosis of liver; F15.11 Other stimulant abuse, in remission; Z90.49 Acquired absence of other specified parts of digestive tract | CPT/HCPCS: 49083; 99211 ==

== ENCOUNTER 2020-07-15 14:42 | Day surgery (SDC) | payer OTHER | END 2020-07-15 23:53 | disposition home or self-care (01) | LOC: US 14:42 | DX: C22.0 Liver cell carcinoma (principal); R18.0 Malignant ascites; I10 Essential (primary) hypertension | CPT/HCPCS: 49083 ==

== ENCOUNTER 2020-07-22 00:09 | Day surgery (SDC) | payer OTHER | END 2020-07-22 16:31 | disposition home or self-care (01) | LOC: US 00:09 → ATC 00:09 → US 15:00 → ATC 16:31 | DX: C22.7 Other specified carcinomas of liver (principal); R18.0 Malignant ascites; K74.69 Other cirrhosis of liver; K75.89 Other specified inflammatory liver diseases; E78.5 Hyperlipidemia, unspecified; I10 Essential (primary) hypertension; F17.210 Nicotine dependence, cigarettes, uncomplicated; Z92.21 Personal history of antineoplastic chemotherapy | CPT/HCPCS: 49083; 96365; P9046 ==

== ENCOUNTER 2020-07-28 00:05 | Day surgery (SDC) | payer OTHER | END 2020-07-28 16:40 | disposition home or self-care (01) | LOC: US 00:05 → ATC 00:05 → US 14:00 → ATC 16:40 → US 07-29 15:00 | DX: C22.0 Liver cell carcinoma (principal); R18.0 Malignant ascites; F17.210 Nicotine dependence, cigarettes, uncomplicated; I10 Essential (primary) hypertension | CPT/HCPCS: 49083; 96365; P9041; P9046 ==

== ENCOUNTER 2020-08-04 00:06 | Day surgery (SDC) | payer OTHER ==
[2020-08-04] MEDS ORDERED: CONSTULOSE10 GM/155 PO (15:48)
== END 2020-08-04 15:50 | disposition home or self-care (01) ==
LOC: ATC 00:06 → US 00:06 → ATC 15:50 → US 08-05 15:00
DX: C22.0 Liver cell carcinoma (principal); R18.0 Malignant ascites; I10 Essential (primary) hypertension; F17.210 Nicotine dependence, cigarettes, uncomplicated
CPT/HCPCS: 99211

== ENCOUNTER 2020-08-08 20:53 | Inpatient (IN) | payer OTHER ==
[~2020-08-08] VITALS: Ht 165.1 cm; Wt 71.2 kg
[~2020-08-08 20:53] MED LIST changes: +CONSTULOSE10 GM/155 PO
[2020-08-08 21:28] LABS: BASOPHILS ABSOLUTE AUTO 0.07 K/mm3 (0.00-0.23); BASOPHILS PERCENT AUTO 1 % (0-2); EOSINOPHILS PERCENT AUTO 6 % (0-6); Hematocrit 43.9 % (33.0-51.0); Hemoglobin 14.4 g/dL (11.5-16.0); IMMATURE GRAN ABSOLUTE AUTO 0.03 K/mm3 (0.00-0.10); IMMATURE GRAN PERCENT AUTO 0 % (0-1); LYMPHOCYTES ABSOLUTE AUTO 0.79 K/mm3 (0.84-5.20); LYMPHOCYTES PERCENT AUTO 11 % (21-46); MONOCYTES ABSOLUTE AUTO 0.84 K/mm3 (0.16-1.47); MONOCYTES PERCENT AUTO 12 % (4-13); Mean Corpuscular HGB 30.6 pg (26.0-34.0); Mean Corpuscular HGB Conc 32.8 g/dL (31.5-36.5); Mean Corpuscular Volume 93 fL (80-100); Mean Platelet Volume 9.6 fL (9.1-12.4); NEUTROPHILS ABSOLUTE AUTO 4.87 K/mm3 (1.96-9.15); NEUTROPHILS PERCENT AUTO 70 % (41-73); Platelet Count 219 K/mm3 (150-400); RDW Coefficient Variation 15.1 % (11.7-14.2); RDW Standard Deviation 51.9 fL (35.1-46.3); Red Blood Cell Count 4.71 M/mm3 (3.80-5.20)
[2020-08-08 21:48] LABS: Alanine Aminotransfer (ALT/SGP 54 U/L (12-78); Albumin/Globulin Ratio 0.6 (0.8-1.8); Alk Phos 109 U/L (50-136); Anion Gap 6 mmol/L (6-16); Aspartate Aminotrans (AST/SGOT 81 U/L (12-37); Bilirubin, Total 0.8 mg/dL (0.1-1.0); Blood Urea Nitrogen 21 mg/dL (8-24); Bun/Creatinine Ratio 23.5 (12.0-20.0); CO2, Blood 26 mmol/L (21-32); Calcium, Blood 8.7 mg/dL (8.5-10.1); Chloride, Blood 106 mmol/L (98-108); Creatinine, Blood 0.89 mg/dL (0.40-1.00); Globulin, Blood 4.9 g/dL (2.2-4.0); Glomerular Filtration Rate >60 (60-); Glucose, Blood 108 mg/dL (70-99); Potassium, Blood 4.2 mmol/L (3.5-5.5); Sodium, Blood 138 mmol/L (136-145); Total Protein, Blood 7.9 g/dL (6.4-8.2)
[2020-08-09 06:25] LABS: BASOPHILS ABSOLUTE AUTO 0.11 K/mm3 (0.00-0.23); BASOPHILS PERCENT AUTO 2 % (0-2); EOSINOPHILS PERCENT AUTO 7 % (0-6); Hematocrit 42.2 % (33.0-51.0); Hemoglobin 13.7 g/dL (11.5-16.0); IMMATURE GRAN ABSOLUTE AUTO 0.03 K/mm3 (0.00-0.10); IMMATURE GRAN PERCENT AUTO 0 % (0-1); LYMPHOCYTES ABSOLUTE AUTO 1.07 K/mm3 (0.84-5.20); LYMPHOCYTES PERCENT AUTO 14 % (21-46); MONOCYTES ABSOLUTE AUTO 1.25 K/mm3 (0.16-1.47); MONOCYTES PERCENT AUTO 17 % (4-13); Mean Corpuscular HGB 31.1 pg (26.0-34.0); Mean Corpuscular HGB Conc 32.5 g/dL (31.5-36.5); Mean Corpuscular Volume 96 fL (80-100); Mean Platelet Volume 9.5 fL (9.1-12.4); NEUTROPHILS PERCENT AUTO 60 % (41-73); Platelet Count 203 K/mm3 (150-400); RDW Coefficient Variation 15.3 % (11.7-14.2); RDW Standard Deviation 53.8 fL (35.1-46.3); Red Blood Cell Count 4.41 M/mm3 (3.80-5.20); White Blood Cell Count 7.46 K/mm3 (4.00-11.30)
[2020-08-09 06:44] LABS: Alanine Aminotransfer (ALT/SGP 48 U/L (12-78); Albumin, Blood 2.6 g/dL (3.4-5.0); Albumin/Globulin Ratio 0.6 (0.8-1.8); Alk Phos 93 U/L (50-136); Anion Gap 7 mmol/L (6-16); Aspartate Aminotrans (AST/SGOT 73 U/L (12-37); Bilirubin, Total 0.9 mg/dL (0.1-1.0); Blood Urea Nitrogen 20 mg/dL (8-24); Bun/Creatinine Ratio 23.6 (12.0-20.0); CO2, Blood 23 mmol/L (21-32); Calcium, Blood 8.7 mg/dL (8.5-10.1); Chloride, Blood 111 mmol/L (98-108); Creatinine, Blood 0.85 mg/dL (0.40-1.00); Globulin, Blood 4.4 g/dL (2.2-4.0); Glomerular Filtration Rate >60 (60-); Glucose, Blood 102 mg/dL (70-99); Potassium, Blood 3.9 mmol/L (3.5-5.5); Sodium, Blood 141 mmol/L (136-145)
--- NOTE | 2020-08-09 19:48 | NUR ---
SHIFT SUMMARY: PATIENT ADMIT FROM ED THIS SHIFT. PT A&O; OCC FORGETFUL; CALM AND COOPERATIVE WITH CARE. NO C/O PAIN SINCE ARRIVAL ON MEDICAL. ELEVATED AMMONIA R/T LIVER CA (DR NELSON FOLLOWING); LACTULOSE GIVEN WITH GOOD RESULTS; MENTATION IMPROVING. DIET ADVANCED TO SOFT. POSSIBLE D/C TO HOME TOMORROW 08/10. REPORT GIVEN TO ONCOMING RN.
--- NOTE | 2020-08-10 07:49 | NUR ---
SHIFT SUMMARY: A&OX4, HAD 5 LOOSE BM'S BUY THE 2000 DOSE OF LACTALOSE, THE 2000 AND 0000 DOSES WERE HELD. BP'S ARE SOFT, ASYMPTOMATIC. UP TO THE BATHROOM INDEPENDANT TO THE BATHROOM. 0400 DOSE OF LACRALOSE WAS GIVEN. TOLERATING DIET WELL.
[2020-08-10] MEDS ORDERED: ONDA4 PO (17:53)
[2020-08-10] MEDS ORDERED: LACT10SY PO (17:53)
--- NOTE | 2020-08-10 18:37 | NUR ---
PATIENT DISCHARGE: PATIENT DISCHARGED TO HOME THIS SHIFT. MEDICATION RECONCILIATION COMPLETED; NO NEW MEDICATIONS TO REPORT. DISCHARGE EDUCATION COMPLETED WITH PATIENT. PATIENT TRANSPORTED TO EXIT BY [facility] STAFF WITH WHEELCHAIR AT 1835. PATIENT DEPARTED [facility] VIA PRIVATE AUTO.
== END 2020-08-10 18:35 | disposition home or self-care (01) | DRG 442 ==
LOC: ER 20:53 → ERHOLD 22:53 → MEDS 08-09 00:16 → ER 08-09 00:16 → MEDS 08-09 11:56 → ERHOLD 08-09 11:56 → MEDS 08-09 11:56
PROVIDERS: Emergency Medicine; ADMIT Internal Medicine
PROC: 0W9G3ZZ Drainage of Peritoneal Cavity, Percutaneous Approach (ICD-10-PCS; principal; 2020-08-06)
DX: K72.00 Acute and subacute hepatic failure without coma (principal); K76.6 Portal hypertension; C22.0 Liver cell carcinoma; R18.0 Malignant ascites; B19.20 Unspecified viral hepatitis C without hepatic coma; Z66 Do not resuscitate; I10 Essential (primary) hypertension; K74.60 Unspecified cirrhosis of liver; F17.210 Nicotine dependence, cigarettes, uncomplicated; Z92.21 Personal history of antineoplastic chemotherapy
CPT/HCPCS: 36415; 49083; 80053; 82140; 83605; 83690; 85025; 87040; 93005; 93010; 96360; 96365; 99285-25; A9270; J7030; P9046

== ENCOUNTER 2020-08-11 00:32 | Day surgery (SDC) | payer OTHER ==
[~2020-08-11 00:32] MED LIST changes: +LACT10SY PO; +ONDA4 PO
== END 2020-08-11 16:54 | disposition home or self-care (01) ==
LOC: US 00:32 → ATC 00:32 → US 14:00 → ATC 16:54 → US 08-12 15:00
DX: C22.0 Liver cell carcinoma (principal); R18.0 Malignant ascites; I10 Essential (primary) hypertension; F17.210 Nicotine dependence, cigarettes, uncomplicated
CPT/HCPCS: 49083; 96365; P9041; P9046

== ENCOUNTER 2020-08-17 00:39 | Day surgery (SDC) | payer OTHER | END 2020-08-17 16:55 | disposition home or self-care (01) | LOC: US 00:39 → ATC 00:39 → US 14:00 → ATC 16:55 → US 08-18 14:00 | DX: C22.0 Liver cell carcinoma (principal); R18.0 Malignant ascites; I10 Essential (primary) hypertension; F17.210 Nicotine dependence, cigarettes, uncomplicated | CPT/HCPCS: 49083; 96365; P9046 ==

== ENCOUNTER 2020-08-19 20:52 | Observation (INO) | payer OTHER ==
[~2020-08-19] VITALS: Ht 167.6 cm; Wt 72.6 kg
[2020-08-19 22:10] LABS: BASOPHILS PERCENT AUTO 1 % (0-2); EOSINOPHILS ABSOLUTE AUTO 0.33 K/mm3 (0.00-0.68); EOSINOPHILS PERCENT AUTO 4 % (0-6); Hematocrit 37.7 % (33.0-51.0); Hemoglobin 12.7 g/dL (11.5-16.0); IMMATURE GRAN ABSOLUTE AUTO 0.03 K/mm3 (0.00-0.10); IMMATURE GRAN PERCENT AUTO 0 % (0-1); LYMPHOCYTES ABSOLUTE AUTO 0.93 K/mm3 (0.84-5.20); LYMPHOCYTES PERCENT AUTO 12 % (21-46); MONOCYTES PERCENT AUTO 14 % (4-13); Mean Corpuscular HGB 30.8 pg (26.0-34.0); Mean Corpuscular HGB Conc 33.7 g/dL (31.5-36.5); Mean Corpuscular Volume 91 fL (80-100); Mean Platelet Volume 9.7 fL (9.1-12.4); NEUTROPHILS ABSOLUTE AUTO 5.23 K/mm3 (1.96-9.15); NEUTROPHILS PERCENT AUTO 68 % (41-73); Platelet Count 236 K/mm3 (150-400); RDW Coefficient Variation 14.8 % (11.7-14.2); RDW Standard Deviation 49.6 fL (35.1-46.3); Red Blood Cell Count 4.13 M/mm3 (3.80-5.20); White Blood Cell Count 7.72 K/mm3 (4.00-11.30)
[2020-08-19 22:29] LABS: Albumin, Blood 3.4 g/dL (3.4-5.0); Albumin/Globulin Ratio 0.8 (0.8-1.8); Bilirubin, Total 1.3 mg/dL (0.1-1.0); Bun/Creatinine Ratio 25.9 (12.0-20.0); Calcium, Blood 9.1 mg/dL (8.5-10.1); Creatinine, Blood 1.16 mg/dL (0.40-1.00); Globulin, Blood 4.3 g/dL (2.2-4.0); Potassium, Blood 5.6 mmol/L (3.5-5.5); Total Protein, Blood 7.7 g/dL (6.4-8.2)
--- NOTE | 2020-08-20 03:04 | NUR ---
PHYSICIAN CORRESPONDENCE BED-SIDE SWALLOW EVAL COMPLETED BY ED RN. ED RN STATED PATIENT TOLERATED THIIN LIQUIDS AND WAS ABLE TO MAINTAIN PUDDING W/O N/V. OK TO CHANGE TO SOFT HEPATIC DIET. PO LACTULOSE ORDERED WELL DISSOLVING ZOFRAN.
--- NOTE | 2020-08-20 06:06 | NUR ---
SHIFT SUMMARY RECIEVED REPORT FROM CHRISTINA MCKINNON, ED @ 9180. ARRIVED TO MEDICAL UNIT VIA STRETCHER. MINIMAL ASSISTANCE TO BED FROM STRETCHER. ORIENTED TO ROOM AND CALL SYSTEM. A/O, ABLE TO MAKE NEEDS KNOWN. COOPERATIVE WITH CARE. ABLE TO ANSWER ALL ORIENTATION QUESTIONS. KNEW THE REASON WHY SHE ARRIVED HERE AND WHERE SHE WAS PRIOR TO ARRIVAL. NO ACUTE CHANGES UPON ARRIVAL. VSS/AFEBRILE. BED REMAINS IN LOWEST POSITION. CALL LIGHT AND BELONGINGS WITHIN REACH. CONTINUE WITH CURRENT PLAN OF CARE. REPORT TO ANI MCKINNON.
[2020-08-20 07:34] LABS: BASOPHILS ABSOLUTE AUTO 0.12 K/mm3 (0.00-0.23); BASOPHILS PERCENT AUTO 2 % (0-2); EOSINOPHILS ABSOLUTE AUTO 0.42 K/mm3 (0.00-0.68); EOSINOPHILS PERCENT AUTO 6 % (0-6); Hematocrit 38.3 % (33.0-51.0); Hemoglobin 12.6 g/dL (11.5-16.0); IMMATURE GRAN ABSOLUTE AUTO 0.04 K/mm3 (0.00-0.10); IMMATURE GRAN PERCENT AUTO 1 % (0-1); LYMPHOCYTES ABSOLUTE AUTO 0.98 K/mm3 (0.84-5.20); LYMPHOCYTES PERCENT AUTO 14 % (21-46); MONOCYTES ABSOLUTE AUTO 1.18 K/mm3 (0.16-1.47); MONOCYTES PERCENT AUTO 16 % (4-13); Mean Corpuscular HGB 30.2 pg (26.0-34.0); Mean Corpuscular HGB Conc 32.9 g/dL (31.5-36.5); Mean Corpuscular Volume 92 fL (80-100); Mean Platelet Volume 9.9 fL (9.1-12.4); NEUTROPHILS ABSOLUTE AUTO 4.49 K/mm3 (1.96-9.15); NEUTROPHILS PERCENT AUTO 62 % (41-73); Platelet Count 224 K/mm3 (150-400); RDW Standard Deviation 50.9 fL (35.1-46.3); Red Blood Cell Count 4.17 M/mm3 (3.80-5.20); White Blood Cell Count 7.23 K/mm3 (4.00-11.30)
[2020-08-20 09:07] LABS: Albumin, Blood 3.2 g/dL (3.4-5.0); Albumin/Globulin Ratio 0.7 (0.8-1.8); Bilirubin, Total 1.4 mg/dL (0.1-1.0); Bun/Creatinine Ratio 26.8 (12.0-20.0); Calcium, Blood 8.8 mg/dL (8.5-10.1); Creatinine, Blood 1.12 mg/dL (0.40-1.00); Globulin, Blood 4.5 g/dL (2.2-4.0); Potassium, Blood 4.4 mmol/L (3.5-5.5); Total Protein, Blood 7.7 g/dL (6.4-8.2)
[2020-08-20] MEDS ORDERED: SPIR25 PO (11:30)
[2020-08-20] MEDS ORDERED: ALPR.5 PO (11:30)
--- NOTE | 2020-08-20 18:00 | NUR ---
PATIENT D/C'D TO HOME WITH BROTHER. DC INSTRUCTIONS AND EDUCATIONS DISCUSSED WITH PATIENT AND COPY PROVIDED. NO NEW RX MEDICATIONS. MESSAGE LEFT WITH [employer] TO CALL PATIENT WITH FOLLOW UP APPT. PATIENT DENIES ANY FURTHER QUESTIONS OR CONCERNS.
[2020-08-21] MEDS ORDERED: HYDHCL25 PO (17:42)
[2020-08-21] MEDS ORDERED: MUPIROCIN22 G2 TOP (17:43)
== END 2020-08-20 18:10 | disposition home or self-care (01) ==
LOC: ER 20:52 → MEDS 20:53 → ERHOLD 20:53 → MEDS 08-20 02:45
PROVIDERS: Emergency Medicine; ADMIT Internal Medicine
DX: K72.00 Acute and subacute hepatic failure without coma (principal); E87.5 Hyperkalemia; E87.1 Hypo-osmolality and hyponatremia; N17.9 Acute kidney failure, unspecified; I85.00 Esophageal varices without bleeding; I10 Essential (primary) hypertension; K21.9 Gastro-esophageal reflux disease without esophagitis; E78.5 Hyperlipidemia, unspecified; F17.210 Nicotine dependence, cigarettes, uncomplicated; Z66 Do not resuscitate; Z85.05 Personal history of malignant neoplasm of liver; Z23 Encounter for immunization
CPT/HCPCS: 36415; 80053; 82140; 85025; 93005; 93010; 99285-25; A9270; G0008; G0378; Q2038

== ENCOUNTER 2020-08-21 15:14 | Observation (INO) | payer OTHER ==
[~2020-08-21] VITALS: Ht 165.1 cm; Wt 68.9 kg
[~2020-08-21 15:14] MED LIST changes: +ALPR.5 PO; +SPIR25 PO
[2020-08-21 16:13] LABS: BASOPHILS ABSOLUTE AUTO 0.11 K/mm3 (0.00-0.23); BASOPHILS PERCENT AUTO 1 % (0-2); EOSINOPHILS ABSOLUTE AUTO 0.05 K/mm3 (0.00-0.68); EOSINOPHILS PERCENT AUTO 0 % (0-6); Hemoglobin 14.7 g/dL (11.5-16.0); IMMATURE GRAN ABSOLUTE AUTO 0.11 K/mm3 (0.00-0.10); IMMATURE GRAN PERCENT AUTO 1 % (0-1); LYMPHOCYTES ABSOLUTE AUTO 1.31 K/mm3 (0.84-5.20); LYMPHOCYTES PERCENT AUTO 9 % (21-46); MONOCYTES ABSOLUTE AUTO 1.66 K/mm3 (0.16-1.47); MONOCYTES PERCENT AUTO 11 % (4-13); Mean Corpuscular HGB 30.7 pg (26.0-34.0); Mean Corpuscular HGB Conc 33.4 g/dL (31.5-36.5); Mean Corpuscular Volume 92 fL (80-100); Mean Platelet Volume 10.2 fL (9.1-12.4); NEUTROPHILS ABSOLUTE AUTO 11.66 K/mm3 (1.96-9.15); NEUTROPHILS PERCENT AUTO 78 % (41-73); Platelet Count 317 K/mm3 (150-400); RDW Coefficient Variation 14.8 % (11.7-14.2); RDW Standard Deviation 50.7 fL (35.1-46.3); Red Blood Cell Count 4.79 M/mm3 (3.80-5.20)
[2020-08-21 16:36] LABS: Albumin, Blood 3.1 g/dL (3.4-5.0); Albumin/Globulin Ratio 0.7 (0.8-1.8); Bilirubin, Total 1.5 mg/dL (0.1-1.0); Bun/Creatinine Ratio 34.6 (12.0-20.0); Calcium, Blood 8.8 mg/dL (8.5-10.1); Creatinine, Blood 1.27 mg/dL (0.40-1.00); Globulin, Blood 4.3 g/dL (2.2-4.0); Potassium, Blood 6.1 mmol/L (3.5-5.5); Total Protein, Blood 7.4 g/dL (6.4-8.2)
[2020-08-21 17:03] LABS: Creatine Kinase MB 12.8 ng/mL (0.0-3.6); Creatine Kinase MB Index 1.9 (0.0-4.0)
[2020-08-21] MEDS ORDERED: HYDHCL25 PO (17:42)
[2020-08-21] MEDS ORDERED: MUPIROCIN22 G2 TOP (17:43)
[2020-08-21 22:35] LABS: Bun/Creatinine Ratio 39.8 (12.0-20.0); Calcium, Blood 9.2 mg/dL (8.5-10.1); Creatinine, Blood 1.23 mg/dL (0.40-1.00)
[2020-08-21 22:56] LABS: Source, Urine Clean Catch
[2020-08-21 22:58] LABS: Bilirubin, Urine Neg (Neg); Blood, Urine 1+ (Neg); Glucose Qualitative, Urine Neg (Neg); Ketones, Urine Neg (Neg); Leukocyte Esterase, Urine Neg (Neg); Nitrite, Urine Neg (Neg); Protein, Urine 1+ (Neg); Urobilinogen, Urine 1+ (Normal)
[2020-08-21 23:02] LABS: Appearance, Urine Clear (Clear); Color, Urine Yellow (P-Yellow)
[2020-08-21 23:04] LABS: Red Blood Cells, Urine 0-2 /hpf (0-2); White Blood Cells, Urine 0-2 /hpf (0-5)
[2020-08-21 23:05] LABS: Amorphous Light (0-Heavy); Bacteria Few /hpf; Hyaline Casts 50-100 /lpf (0-2); Mucus Light (0-Heavy); Squamous Epithelial Cells Rare /hpf (Few)
--- NOTE | 2020-08-22 00:21 | NUR ---
LABORER HOISTING ENTERED RM 343 AT 2200 ON FAMILY REQUEST. FAMILY STATED PT. NEEDED TO VOID, PT ASKED FOR BEDPAN. PT WAS RESTLESS ON BEDPAN AND COULD NOT VOID SO LABORER HOISTING TOOK IT OUT AND ASKED PT TO TRY TO GO IN THE BRIEF PT. TRIED, WHILE VERY RESTLESS AND WRITHING IN DISCOMFORT I CALLED THE NURSE. SHE REQUESTED BLADDER SCAN, THE BLADDER SCAN SHOWED 645CC OF URINE.
[2020-08-22 01:57] LABS: BASOPHILS ABSOLUTE AUTO 0.09 K/mm3 (0.00-0.23); BASOPHILS PERCENT AUTO 1 % (0-2); EOSINOPHILS ABSOLUTE AUTO 0.02 K/mm3 (0.00-0.68); EOSINOPHILS PERCENT AUTO 0 % (0-6); Hematocrit 38.7 % (33.0-51.0); IMMATURE GRAN ABSOLUTE AUTO 0.11 K/mm3 (0.00-0.10); IMMATURE GRAN PERCENT AUTO 1 % (0-1); LYMPHOCYTES ABSOLUTE AUTO 1.36 K/mm3 (0.84-5.20); LYMPHOCYTES PERCENT AUTO 7 % (21-46); MONOCYTES ABSOLUTE AUTO 2.05 K/mm3 (0.16-1.47); MONOCYTES PERCENT AUTO 11 % (4-13); Mean Corpuscular HGB 31.2 pg (26.0-34.0); Mean Corpuscular HGB Conc 33.6 g/dL (31.5-36.5); Mean Corpuscular Volume 93 fL (80-100); Mean Platelet Volume 10.2 fL (9.1-12.4); NEUTROPHILS ABSOLUTE AUTO 15.27 K/mm3 (1.96-9.15); NEUTROPHILS PERCENT AUTO 81 % (41-73); Platelet Count 284 K/mm3 (150-400); RDW Standard Deviation 50.8 fL (35.1-46.3); Red Blood Cell Count 4.17 M/mm3 (3.80-5.20)
[2020-08-22 02:11] LABS: International Normalized Ratio 1.26; Prothrombin Time Results 13.3 Sec (9.7-11.5)
[2020-08-22 02:15] LABS: Albumin/Globulin Ratio 0.7 (0.8-1.8); Bilirubin, Total 1.6 mg/dL (0.1-1.0); Bun/Creatinine Ratio 36.9 (12.0-20.0); Calcium, Blood 9.6 mg/dL (8.5-10.1); Creatinine, Blood 1.3 mg/dL (0.40-1.00); Globulin, Blood 4.2 g/dL (2.2-4.0); Potassium, Blood 5.2 mmol/L (3.5-5.5); Total Protein, Blood 7.2 g/dL (6.4-8.2)
--- NOTE | 2020-08-22 05:03 | NUR ---
SHIFT SUMMARY ASSUMED CARE OF PT AT 1900. PT IS ALERT AND ORIENTED TO FAMILY BUT IGNORES STAFF AND DOES NOT FOLLOW DIRECTIONS FROM STAFF. HEART SOUNDS REGULAR, TELE SHOWS SINUS. LUNG SOUNDS DIMINISHED. PT ABD IS VERY DISTENDED, FAMILY STATED THAT PT USUALLY GETS WEEKLY PARACENTESIS. PT WAS UNABLE TO VOID ON BEDPAN [facility]. BLADDER SCAN SHOWED 645, HOSITALIST NOTIFED AND VILLA PLACED. PT REPEATIVLY STATED SHE HAD TO PEE AFTERWARDS, THIS NURSE ALSO ASKED FOR PAIN MEDICATION. 25 OF FENTYAL HELPED PT TO RELAX AND SLEEP. PT HAD TO GET A RECTAL TUBE FOR HER LACTALOSE ENEMAS. PT WAS NOT ABLE TO JOY ATE THIS AND PULLED OUT THE ENEMA. WHEN CALLING DR GARCIA FOR SOMETHING FOR ANXIETY BECAUSE THE PT WAS SCREAMING HER NEICES NAME INTO THE MA WAY AND ATTEMPTING TO GET OUT OF BED, SHE SAID TO GIVE ANOTHER 25MG DOSE OF FENTYAL. BEFORE THIS NURSE COULD GIVE THIS TO PT, THE PT HAD PULLED OUT THE TUBE AGAIN. PT WAS GIVEN THE FENTYAL AND SHE CALMED DOWN AND SLEPT. WHEN CALLING DR GARCIA THIS MORNING ABOUT GETTING SOMETHING TO HELP THE PT TOLERATE THE RECTAL TUBE, SHE STATED TO LEAVE IT FOR DAYSHIFT TO HANDLE. WHEN ASKED IF WE SHOULD PUT AN NG TUBE DOWN TO GET HER MEDICINE IN, SHE REPEATED THAT DAYSHIFT COULD HANDLE THE SITUATION. PT HAS MULTILPE SKIN TEARS AND ABRASIONS ON BODY. WOUNDS DRESSED AND PICTURES IN CHART. PT HAS WHAT LOOKS LIKE AN ABCESS ON HER L SHOULDER, FAMILY THINKS THAT THIS COULD BE HER MRSA COMING BACK. CALL LIGHT IN REACH, BED IN LOWEST POSITION. BED ALARM ON.
--- NOTE | 2020-08-22 14:12 | NUR ---
PT TRANSITIONED TO COMFORT CARE, FAMILY AT BEDSIDE AT THIS TIME, PT WAS GIVEN MORPHINE SL 10MG FOR ABD PAIN, PT WAS REPOSITIONED ATTENDS CHANGED. PT TO GET RE-EVALUATED TOMORROW WITH [employer]ESS LABORER FOR DISCHARGE PLANS. PT AWAKE AND TALLING AT THIS TIME WITH FAMILY HAVING DISCUSSIONS. CALL LIGHTS IN REACH WILL MONITOR
--- NOTE | 2020-08-22 15:00 | NUR ---
PAL CARE VISIT - New comfort care orders received this am. S/s assessment and case conference with RN in pt's room. Pt somnolent and did not acknowledge or wake with voice or touch initially but then did start to respond with one word answers, eyes closed. Two family memebers arrived, sister and another male family member. We discussed plan of care, medications, s/s. Sister states pt cannot return to pt's home with a friend or to sister's home. Sister hopeful that pt remains in the hospital or that pt's enzo "steps up and takes her to her home", but also acknowledged that pt's enzo has not been to see her during illness recently. Pt does not appear imminent at this time. I gave CM update on challenges for d/c home with hospice, namely no safe home within family to support hospice care at home. Pt was found in bathroom, down, naked and "banged up with blood everywhere", at a friend's home, per sister. We will visit in am to reeval s/s and for support to pt/family. Pt was given Roxanol during my visit. Discussed medications avail per eMAR and encouraged using medications that could be replicated in home setting so that we would know if we get good s/s relief with those meds.
--- NOTE | 2020-08-22 18:11 | NUR ---
4 FAMILY MEMBERS AT BEDSIDE AT THIS TIME, MULTIPLE CAME TO VISIT PT TODAY. PT HAD AN ANXIETY EPISODE EARLIER ROXANOL AND ATIVAN 1MG WAS GIVEN AND WAS EFFECTIVE. PT ALSO ASK FOR FOOD/DRINK PT WAS ABLE TO TOLERATE YOGURT AND ENSURE. PT WAS GIVEN A BED BATH EARLIER, REPOSITIONED IN BED AND MADE COMFORTABLE. PT NOW IS RESTING, PLAN TO POSSIBLY DISCHARGE PT TO HOME WITH HOSPICE PER FAMILY. CALL LIGHTS IN REACH WILL MONITOR
--- NOTE | 2020-08-23 00:56 | NUR ---
COMFORT: REPORT WAS RECIEVED FROM JOHN JOE RN. PATIENT IS RESTING IN BED WITH EASY RESPIRATIONS. NO S/S OF PAIN OR DISCOMFORT. ROOF MECHANIC ASSUMES CARE OF PATIENT.
--- NOTE | 2020-08-23 03:11 | NUR ---
COMFORT: PATIENT STATES "NO" TO PAIN ASSESSMENT. EMOTIONAL SUPPORT, PERSONAL CARE AND T&P ARE GIVEN. BED ALARM IS ON FOR SAFETY.
--- NOTE | 2020-08-23 05:27 | NUR ---
COMFORT: PATIENT IS CRYING OUT, ANXIOUS AND PAINFUL. PATIENT IS REPOSITIONED, EMOTIONAL SUPPORT GIVEN. ATIVAN IS ALSO GIVEN. BED ALARM IS ON.
--- NOTE | 2020-08-23 06:05 | NUR ---
SHIFT SUMMARY: PATIENT HAD POOR EFFECT FROM ATIVAN. CONTINUED TO YELL OUT FOR HER DAUGHTER GABI AND ATTEMPT TO GET OOB TO URINATE. PATIENT IS ORINTED TO VILLA AND IT IS DRAINING AN MARIBEL URINE. METAL HANGING HELPER REMAINS IN ROOM WITH PATIENT UNTIL ROXANOL TAKES EFFECT.
--- NOTE | 2020-08-23 10:41 | NUR ---
ASSUMED PT CARE @0650. CLIENT RESTING EYES CLOSED. NO S/S OF DISTRESS RR EVEN AND UNLABORED ON RA. SHE HAS CONTINUED TO SLEEP. WILL CONTINUE TO MONITOR
--- NOTE | 2020-08-23 18:41 | NUR ---
Pt lying in bed, receiving roxanol prn. Her grandson at bedside. Pt appears comfortable, and is softly snoring. Face appears relaxed. Grandson denies needs at this time. Will return as needed.
--- NOTE | 2020-08-23 19:36 | NUR ---
PT ON COMFORT CARE. pT WAS AGITATED AND CONFUSED OAT BEGINING OF SHIFT. HALIDOL ADMINISTERED, IV ATIVAN AND ROXINOL GIVEN AT REGULAR INTERVALS WITH GOOD RESULTS. VILLA CATH IN PLACE AND DRAINING TO GRAVITY. FAMILY PRESENT AND SUPPORTIVE. PLAN TO DC HOME WITH HOSPICE IF FAMILY CAN PROVIDE CARE
--- NOTE | 2020-08-24 00:41 | NUR ---
DECREASED RR WENT INTO PT RM, GRANDSON @BEDSIDE-HE STATED PT WAS RESTLESS TRYING TO GET OOB 30MIN PRIOR, HOWEVER PT RESTING COMFORTABLY WHEN I WAS IN RM. HAS GURGLING WET NOISE c BREATHING. NOTICED RR @6 BREATHS/MIN WHILE IN RM, COUNTED FOR FULL MIN. PT HAD A 25 SEC PERIOD OF APNEA. MEDICATED c 20MG ROXANOL FOR DYSPNEA. REPOSITIONED PT & RESTING COMFORTABLY NOW, WILL MONITOR.
--- NOTE | 2020-08-24 06:18 | NUR ---
SHIFT SUMMARY COMFORT CARE. ALERT TO VERBAL STIMULI. OCCASIONAL WORDS, YES/NO OR STATES SISTERS NAME. DOESN'T OPEN EYES OFTEN. GETS RESTLESS TRYS TO GET OOB, SWINGS LEGS OVER RAILING-MEDICATED 2X c 1MG ATIVAN FOR ANXIOUSNESS/RESTLESS-PT CALMED DOWN & ABLE TO REST. MOANS, KICKING UP LEGS, RESTLESS c REPOSITIONING- MEDICATED 3X c 20MG PO ROXANOL FOR PAIN & DYSPNEA. HAS OCCASIONAL 25-30SEC PERIODS APNEA c BREATHING, RESULTING IN RR 5-6 BREATHS/FULL MIN. PT RECIEVED BEDBATH & ORAL CARE. WET GURGLING RATTLE NOISE FROM BACK OF THROAT, SCOPALAMINE PATCH WAS PLACED BY DAY NURSE YESTERDAY & I INFORMED DR GARCIA PT STILL WET SOUNDING, SHE ORDERED ATROPINE DROPS-GAVE TO PT & SHE HAD LESS SECRETIONS SINCE. REPOSITIONED PRN FOR COMFORT. VILLA PATENT & DRAINING. WILL CONT TO MONITOR.
--- NOTE | 2020-08-24 17:33 | NUR ---
SHIFT SUMMARY: ON COMFORT CARE. MINIMALLY RESPONSIVE TO THE SOUND OF HER SON'S VOICE. FAMILY AT BEDSIDE MOST OF THE DAY. BILATERAL FEET ARE DUSKY AND COOL. VILLA DRAINING DARK YELLOW URINE. MEDICATED FOR PAIN AND ANXIETY PER EMAR WITH DESIRED RESPONSE. HAVING BRIEF, IRREGULAR PERIODS OF APNEA. PATIENT TO D/C HOME WITH HER NIECE, BUT NIECE'S SPOUSE HAD SHOULDER SURGERY TODAY AND SHE WILL NEED TO BE PRESENT FOR HIM. FAMILY IS REQUESTING THAT PATIENT REMAIN IN HOSPITAL SO SHE GETS ATC CARE UNTIL SHE PASSES.
--- NOTE | 2020-08-24 17:44 | NUR ---
Pt is resting comfortably with niece beside her. Pt's daughter is no longer able to take pt home as previously discussed, and pt does appear imminent. Continue with CC measures as ordered.
--- NOTE | 2020-08-24 18:36 | NUR ---
Spiritual care note: Numerous family present when I came by this afternoon. Pt is soundly sleeping and appears comfortable. Family tearful, but appropriate. Family states they are non-denominational and declined prayer. I re-supplied comfort cart and brought items for family comfort. Needs, concerns, fears declined by family. I will remain available.
--- NOTE | 2020-08-25 05:56 | NUR ---
SHIFT SUMMARY COMFORT CARE. NONVERBAL THIS SHIFT. MOANS OCCASIONALLY, MEDICATED c ROXANOL FOR PAIN/DISCOMFORT. MOVING ARMS & KICKING FEET, APPEARED TO BE TRYING TO GET OOB, MEDICATED FOR RESTLESSNESS c ATIVAN & PT ABLE TO REST COMFORTABLY. ORAL CARE PROVIDED & REPOSITIONED FOR COMFORT. BED ALARM & CALL LIGHT IN REACH.
--- NOTE | 2020-08-25 18:07 | NUR ---
Yesterday at assessment, pt appeared to be imminent. However, today she is awake and talking occasionally. Delfina,CM would like to send pt to niece's home on hospice. This may be a possibility if this increased level of conciousness remains.
--- NOTE | 2020-08-25 18:23 | NUR ---
SHIFT SUMMARY: COMFORT CARE. WAS MORE AWAKE AND AGITATED TODAY, SAID "OW" A FEW TIMES; MEDICATED PER EMAR. ABDOMEN IS DISTENDED, DIFFICULT FOR PATIENT TO FIND A COMFORTABLE POSITION. FAMILY AT BEDSIDE MOST OF THE DAY.
--- NOTE | 2020-08-25 23:00 | NUR ---
PT has been minimally responsive with no verbalizations on comfort care. She had noisy respirations which responded to atropine gtts x 1 . She appears comfortable with [employer] channel soft music playing. No visitors this shift but reportedly she had family present on day shift.
--- NOTE | 2020-08-26 05:53 | NUR ---
Pt continues on comfort care with agonal resp & medicated several times with liquid morphine with helpful effect. Atrophine gtts help with noisy airway rattle.
--- NOTE | 2020-08-26 17:44 | NUR ---
SHIFT SUMMARY PT IS ON COMFORT CARE FOR LIVER CANCER. DROWSY AND SLEEPING MOST OF THE DAY. MULTIPLE FAMILY MEMBERS IN ROOM TAKING SHIFTS FOR SUPPORT. PT APPEARED RELAXED MOST OF THE DAY. MEDICATED FOR RESTLESSNESS/PAIN x1 PER FAMILY REQUEST. PT HAS VILLA CATHETER IN. DRAINING TO GRAVITY. REPOSITIONS PRN. PICC LINE PATENT. PT RESPONDS IN OCCASIONAL MOANS OR ONE WORD ANSWERS. PT CURRENTLY RESTING IN BED WITH CALL LIGHT IN REACH. FAMILY DENIES NEEDS/CONCERNS AND PT APPEARS COMFORTABLE AT THIS TIME.
--- NOTE | 2020-08-26 18:18 | NUR ---
Met with pt, her 2 brothers and her son. Pt's condition has changed multiple times this week, as on Sunday, I thought her to be immenent, but last evening and again today, she is fidgeting and restless, and appears to be a candidate for home on hospice. However, her daughter is unable as her is recovering at home from a surgery. Her neice may still be willling and available to take pt home with hospice. Palliative to re-evaluate again tomorrow.
--- NOTE | 2020-08-27 04:26 | NUR ---
SHIFT SUMMARY ASSUMED CARE OF PT AT 1900. PT HAD FAMILY IN THE ROOM UNTIL 0. PT MOANS WHEN ASKED QUESTIONS. SKIN IS VERY JAUNDICED, PT HAS VARIES SKINS TEARS AND BRUSES ALL OVER, BANDAGES IN PLACE. PT HAS PERIODS OF APNEA BUT THEN WILL CONTINE TO SNORE. PT HAS NOT NEEDED ANY MEDICATION THIS SHIFT. PT RESTING COMFORTABLY EVIDENCE BY SLEEPING WITH FACE IN NEUTRAL POSITION. CALL LIGHT IN REACH, BED IN LOWEST POSTION.
--- NOTE | 2020-08-27 17:16 | NUR ---
SUMMARY PT RESTING QUIETLY IN BED, FAMILY AT THE BEDSIDE, PT ON COMFORT CARE, HAS BEEN MED PER EMAR FOR COMFORT, PT APPEARS COMFORTABLE, WILL CONT TO MONITOR
--- NOTE | 2020-08-28 05:31 | NUR ---
SHIFT SUMMARY PATIENT WAS ALERT. CONFUSED MUCH OF THE TIME WITH OCCASIONAL DILLUSIONS AND HALUCINATIONS. REQUIRED ONE PRN DOSE OF ATIVAN TO HELP THE PATIENT RELAX AND GET BACK TO SLEEP WHEN SHE APPEARED AGITATED. PICC LINE PATENT AND FLUSHED. BED IN LOWEST POSITION WITH WHEELS LOCKED AND ALARM ON. CALL LIGHT WITHIN REACH. REPORT GIVEN TO ONCOMING RN.
--- NOTE | 2020-08-28 07:00 | NUR ---
ASSUMED CARE OF PT- BEDSIDE REPORT COMPLETED WITH NIGHT RN. PT SLEEPNG AT TIME OF REPORT. PER REPORT PT HAS A SCOPOLAMINE PATCH FOR SECRETIONS. AUDIBLE SECRETIONS NOTED DURING REPORT. PT HAS NO S&S OF DISTRESS NOTED RESP E/U. NO FAMILY AT THE BEDSIDE CURRENTLY, COMFORT CART IN THE ROOM. PER REPORT PT STILL WAKING AND EATING AND DRINKING. WILL CTM PT STATUS.
--- NOTE | 2020-08-28 09:00 | NUR ---
COMFORT CARE NOTE- PT AWAKE AND SPEAKING TO STAFF IN NONSENSICAL SPEACH, ABLE TO ANSWER SOME QUESTIONS APPROPRIATELY. STAFF PLAN TO BED BATHE THE PT SHORTLY.
--- NOTE | 2020-08-28 11:00 | NUR ---
COMFORT CARE NOTE- PT RECIEVED A FULL BEDBATH AND BECAME AGITATED SHORTLY AFTER. FAMILY AT THE BEDSIDE TRYING TO CALM THE PT, PT REPOSITIONED, LIGHTS DIMMED MEDICATED WITH PO ATIVAN AND ROXANOL MIXED, PT SEEMED TO RELAX A BIT RIGHT AWAY. WILL CTM.
--- NOTE | 2020-08-28 11:57 | NUR ---
Comfort Care Visit Pt resting in bed upon arrival. Family at bedside. Pt appears anxious and confused as evidenced by non sensical conversation and attempting to climb out of bed. Pt appears to be experiencing terminal restlessness. Spoke with Bedside RN Pattie, discussed case, and reviewed comfort medications. Pattie will offer Roxanol and haliperidol for comfort. Palliative Care will remain available.
--- NOTE | 2020-08-28 12:00 | NUR ---
COMFORT CARE NOTE- FAMILY CALLED PT STILL RESTLESS AND FIDGETTY, SECRETIONS STILL AUDIBLE MEDICATED WITH ATROPIENE SL DROPS TO HELP WITH SECRETIONS. TOO SOON FOR MORE ATIVAN FOR AGITATION. MEDICATED WITH IV HALDOL, PT SEEMED TO RELAX SOON THE MEDS WERE GIVEN. WILL CTM.
--- NOTE | 2020-08-28 12:40 | NUR ---
COMFORT CARE NOTE- MEDICATED WITH PO ROXANOL AND PT SEEMED TO SETTLE. FAMILY AT THE BEDSIDE, REQUESTING MEDICATION TO CALM HER. PT SEEMS TO HAVE SPURTS OF RESTLESSNESS WILL CTM AND MEDICATE NEEDED.
--- NOTE | 2020-08-28 15:11 | NUR ---
COMFORT CARE NOTE- PT STILL AGITATED, THRASHING AND TRYING TO GET OUT OF BED TO GO PEE, PT HAS A VILLA IN PLACE PATENT AND DRAINING. MEDICATED WITH IV ATIVAN AND AGAIN PT SEEMED TO RELAX WHEN THE MED WAS GIVEN, WILL CTM.
--- NOTE | 2020-08-28 16:00 | NUR ---
PT RESTING COMFORTABLY AT THIS TIME FAMILY AT THE BEDSIDE NO S&S OF DISTRESS AT THIS TIME WILL CTM.
--- NOTE | 2020-08-28 17:30 | NUR ---
COMFORT CARE NOTE- PT FAMILY HEADED OUT AND STATED THE PT WAS STARTING TO RAMP UP AGAIN, GETTING A LITTLE RESTLESS AND AGGITATED. MEDICATED WITH 20 OF ROXANOL AND REPOSITIONED TO HER BACK, ON PILLOWS WITH THE HOB ELEVATED. PT SEEMS TO BE A LITTLE FIDGETTY BUT AFTER MEDS AND REPOSITION SHE DRIFTED OFF TO SLEEP. WILL CTM.
--- NOTE | 2020-08-28 18:43 | NUR ---
SHIFT SUMMARY- PT IN BED FAMILY AT THE BEDSIDE, POSSITIONED ON HER BACK WITH HOB ELEVATED, HIPS ON PILLOWS. NO S&S OF DISTRESS AT THIS TIME WILL CTM AND PASS ON TO NIGHT RN IN BEDSIDE REPORT.
--- NOTE | 2020-08-29 05:34 | NUR ---
SHIFT SUMMARY PATIENT WAS AWAKE AND ALERT MUCH OF THE SHIFT. SHE DID NOT SHOW SIGNS OF AGITATION OR PAIN OVERNIGHT AND DID NOT REQUIRE BEING MEDICATED FOR PAIN OR ANXIETY. PICC LINE PATENT AND FLUSHED. BED IN LOWEST POSITION WITH WHEELS LOCKED AND ALARM ON. CALL LIGHT WITHIN REACH. REPORT GIVEN TO ONCOMING RN.
--- NOTE | 2020-08-29 07:40 | NUR ---
ASSUMED CARE OF PT- BEDSIDE REPORT COMPLETED. PT WOKE AND WAS WORRIED THERE WAS SOME ONE IN THE ROOM. SHE WARNED STAFF "HE'S BEHIND YOU, HE'S GONNA BITE YOU." STAFF REASSURED HER SHE WAS SAFE IN THE HOSPITAL AND HAD NOTHING TO DO TODAY BUT REST. PT SEEMED TO ACCEPT THAT AND RELAXED RETURNING TO SLEEP. WILL CTM. PT HAS NOT RECIEVED ANY COMFORT CARE MEDS T/O THE NIGHT, MAY NEED ANXIETY MEDICATION SHORTLY, BUT SEEMS CALM AT THIS TIME.
--- NOTE | 2020-08-29 08:56 | NUR ---
COMFORT CARE NOTE- PT VERY FIDGETTY SEEMS UNCOMFORTABLE CALLS OUT WHEN STAFF TRY TO MOVE HER MEDICATED FOR PAIN WILL CTM.
--- NOTE | 2020-08-29 10:42 | NUR ---
PT AGGITATED AFTER REPOSITION EARLIER MEDICATED WITH IV HALDOL AND PO ROXANOL FOR PAIN, DISCOMFORT AND AGGITATION.
--- NOTE | 2020-08-29 10:54 | NUR ---
Comfort Care Visit Pt resting in bed with her eyes closed. This RN did not disturb Pt at this time. Spoke with Bedside RN Pattie and discussed case. Pt has been experiencing frequent episodes of restlessnes and agitation. Reviewed comfort medications. Spoke with Dr Martinez and discussed case. Increased frequency of haloperidol from Q 6 hours PRN to Q 4 hours PRN per V/O from Dr Martinez. Palliative Care will remain available for symptom management.
--- NOTE | 2020-08-29 15:00 | NUR ---
COMFORT CARE NOTE- PT FINALLY RELAXED AND RESTING COMFORTABLY. FAMILY HAS BEEN IN TO VISIT FOR A BIT TODAY. WILL CTM PT.
--- NOTE | 2020-08-29 18:18 | NUR ---
PT ALERT AND AGITATED, SLIGHTLY REDIRECTABLE AT THIS TIME BUT SEEMS TO BE GETTING MORE FIDGETTY AND RESTLESS. MEDICATED WITH IV ATIVAN AFTER 20 OF ROXANOL. PT STATED SHE IS HAVING PAIN IN HER ABDOMEN WILL MEDICATE AGAIN WITH ROXANOL WHEN IT IS AVAILABLE.
--- NOTE | 2020-08-29 19:00 | NUR ---
PT IS DELERIOUS, TRYING TO GET UP CALMED AND REDIRECTED HER FOR NOW. PASSED ON TO NIGHT RN PT MAY NEED IV HALDOL AGAIN. FAMILY LEFT FOR HOME AT 1900 AND REQUESTED SOME MORE MEDICATION FOR THE PT SHE STILL SEEMED AGGITATED.
--- NOTE | 2020-08-29 19:40 | NUR ---
COMFORT CARE APPEARS TO BE RESTING WITHOUT ANY NEEDS DURING BEDSIDE REPORT. SOME SLIGHT SECRETIONS NOTED; SCAPOLAMINE PATCH REMAINS IN PLACE. BED IN LOWEST POSITION; ALARM ON.
--- NOTE | 2020-08-29 22:14 | NUR ---
COMFORT CARE APPEARS TO BE RESTING WITHOUT ANY NEEDS. APPEARS TO BE TALKING TO SELF INTERMITTENTLY. WILL ASSESS FOR PAIN/ANXIETY AND REPOSITION SHORTLY. BED REMAINS IN LOWEST POSITION; ALARM ON.
--- NOTE | 2020-08-29 23:00 | NUR ---
COMFORT CARE REPOSITIONED. ORAL CARE PERFORMED. MEDICATED FOR ANXIETY, SECRETIONS AND PAIN. CONTINUES TO TALK TO SELF AND GRABBING FOR THINGS THAT ARE NOT THERE. BED REMAINS IN LOWEST POSITION; ALARM ON. CONTINUE WITH CURRENT PLAN OF CARE.
--- NOTE | 2020-08-30 01:00 | NUR ---
COMFORT CARE APPEARS TO BE RESTING WITHOUT ANY NEEDS AT THIS TIME. BED REMAINS IN LOWEST POSITION; ALARM ON. CALL LIGHT WITHIN REACH, DOES NOT UTILIZE. CONTINUE WITH CURRENT PLAN OF CARE.
--- NOTE | 2020-08-30 03:00 | NUR ---
COMFORT CARE APPEARS TO BE RESTING WIHTOUT ANY NEEDS AT THIS TIME. BED REMAINS IN LOWEST POSITION; ALARM ON. CALL LIGHT IN REACH; DOES NOT UTILIZE. CONTINUE WITH CURRENT PLAN OF CARE.
--- NOTE | 2020-08-30 03:56 | NUR ---
SHIFT SUMMARY AWAKENS TO VERBAL STIMULI; HOWEVER, DOES NOT HOLD CONVERSATION. TALKING TO SELF DURING THE NIGHT. GRABBING AT THINGS THAT ARE NOT THERE. NOT VERY TOLERANT OF ORAL CARE. APPEARED TO REST MUCH OF THE NIGHT. FAVORS RIGHT SIDE EVEN WHEN REPOSITIONED. VILLA SECURED AND DRAINING TO GRAVITY; CATH CARE COMPLETED. MEDICATED PER EMAR WHEN INDICATED. NO ACUTE CHANGES NOTED OVERNGIHT. BED REMAINED IN LOWEST POSITION; ALARM ON. CALL LIGHT IN REACH; DOES NOT UTILIZE. CONTINUE WITH CURRENT PLAN OF CARE. REPORT TO ONCOMING RN.
--- NOTE | 2020-08-30 15:58 | NUR ---
Spiritual care note: Yazmin was alone in room when I visited this morning. She is non-responsive and sppears comfortable. Skin color change noted. Breaths even. I sat with her awhile providing presence and touch. I will remain available to family.
--- NOTE | 2020-08-30 17:21 | NUR ---
Made a visit to patient today around noon. Pt was moving extremities in bed, grimacing. She states "yes" when ask if she was in pain. Nurse Diane gave pt roxanol with plan to medicate with lorazepam in approximately 30 minutes. This initial dose today was effective, although she did need lorazepa. soon after. Pt does appear appriate to return home. She is declining, but very slowly.
--- NOTE | 2020-08-30 17:32 | NUR ---
Pt was on the phone today when I stopped to see him. Made a copy of his POLST for medical records.
--- NOTE | 2020-08-30 17:37 | NUR ---
SHIFT SUMMARY- PT IS CONFUSED AND AGITATED. SHE IS RECIEVING MEDICATIONS NEEDED. FAMILY WAS IN WITH THE PT THROUGHOUT THE DAY. SHE SLEPT INTERMITENTLY THROUGHOUT THE SHIFT. HER BED IS IN THE LOW POSTION AND CALL LIGHT IS WITHIN REACH.
--- NOTE | 2020-08-31 04:38 | NUR ---
SHIFT SUMMARY ASSUMED CARE OF PT AT 1900. PT WAS SLEEPING MOST OF THE SHIFT BUT AROUND 0200 PT AWOKE AND WOULD SAY SHORT SENTENCES THAT DID NOT MAKE SENSE. PT WAS MEDICATED TWICE BUT STILL AGITATED. PT IS NOW RESTING ON HER R SIDE PEACEFULLY. ORAL CARE GIVEN, PT TONGUE IS WHITE COLORED. CALL LIGHT IN REACH, BED IN LOWEST POSTION.
--- NOTE | 2020-08-31 16:41 | NUR ---
SHIFT SUMMARY- PT SLEPT FOR MOST OF THIS SHIFT. FAMILY WAS AT BEDSIDE. BED CHANGE DONE. SHE IS BEING MEDICATED NEEDED FOR PAIN AND AGITATION. HER BED IS IN THE LOW POSTION CALL LGITH WITHIN REACH. BED ALARM ON.
--- NOTE | 2020-09-01 06:15 | NUR ---
COMFORT CARE PASSED. PT , TOD APPROXIMATELY 0500. SISTER GABI CALLED, WHO STATED FAMILY WOULD BE COMING IN. CHARGE NURSE AND NURSING MEDICAL OFFICE SUPERVISOR INFORMED. PASTORAL CARE REQUESTED. ALLEN WAS KATHI.
--- NOTE | 2020-09-01 07:02 | NUR ---
Call back - TOD Pt's brother and sister were present and grieving appropriately. Room provided for the two to share late pt's narrative. Verbal prayer was offered and words of comfort extended. Sister chose [facility] in [place]. Sister is attempting to reach daughter before the mortuary is called.
--- NOTE | 2020-09-01 08:30 | NUR ---
PT PASSED THIS EDUCATIONAL ASSISTANT, AND DESHAWN RAND TRANSPORTED THE PT. PT FAMILY LEFT THE ROOM. PT PICC DC AND ALLEN. PT POSTMORTEM CARE PERFORMED.
== END 2020-09-01 05:00 ==
LOC: ER 15:14 → MEDS 15:15
PROVIDERS: Emergency Medicine; ADMIT Internal Medicine
DX: K72.00 Acute and subacute hepatic failure without coma (principal); C22.0 Liver cell carcinoma; Z66 Do not resuscitate; R91.8 Other nonspecific abnormal finding of lung field; E87.5 Hyperkalemia; I12.9 Hypertensive chronic kidney disease with stage 1 through stage 4 chronic kidney disease, or unspecified chronic kidney disease; N18.2 Chronic kidney disease, stage 2 (mild); N17.9 Acute kidney failure, unspecified; R77.8 Other specified abnormalities of plasma proteins; F17.210 Nicotine dependence, cigarettes, uncomplicated
CPT/HCPCS: 36415; 70450; 71045; 72125; 80048; 80053; 81001; 82140; 82550; 82553; 84484; 85025; 85610; 90471; 90714; 93005; 93010; 96360; 96361; 96365; 96372; 96375; 96376; 99285-25; A9270; G0378; J0456; J0610; J0696; J1630; J1650; J1815; J2060; J2270; J3010; J7030; J7050

== ENCOUNTER 2020-08-25 00:37 | Day surgery (SDC) | payer OTHER ==
[~2020-08-25 00:37] MED LIST changes: +HYDHCL25 PO; +MUPIROCIN22 G2 TOP
== END 2020-08-25 23:05 | disposition home or self-care (01) ==
LOC: US 00:37
DX: C22.0 Liver cell carcinoma (principal); R18.0 Malignant ascites; F17.210 Nicotine dependence, cigarettes, uncomplicated